=== PATIENT | female | born 1955 | race Caucasian/White ===

== ENCOUNTER 2016-11-22 12:59 | Inpatient (IN) | payer OTHER ==
--- NOTE | 2016-11-22 13:32 | PDOC ---
History of Present Illness - General History Source: Patient Exam Limitations: No Limitations - History of Present Illness Initial Comments: 11/22/16 14:34 The patient is a 61 year old female with a significant past medical history of Breast CA (s/p right sided lymphadenectomy and mastectomy), received chemotherapy treatment ? (2 weeks ago),and multiple skin abscesses of left upper extremity who presents to the ED with complaints of left upper extremity abscess for 6 days. The patient reports pain and swelling to the left upper extremity. She states her symptoms progressively worsened in the last 2 days. Patient denies discharge or streaking. Denies weakness or paresthesia. Patient denies fever or chills. Patient denies nausea, vomiting, or diarrhea. <Ashok Rebollar - Last Filed: 11/22/16 14:35> - General History Source: Patient Exam Limitations: No Limitations - History of Present Illness Initial Comments: 11/22/16 13:32 <Jareth Fuchs - Last Filed: 11/22/16 16:53> - General Chief Complaint: Abscess Boil Stated Complaint: ABSCESS IN HER L SIDE OF CHEST Time Seen by Provider: 11/22/16 13:04 Past History <Ashok Rebollar - Last Filed: 11/22/16 14:35> - Past Medical History Anemia: Yes Asthma: No Cancer: Yes (BREAST CANCER) Cardiac Disorders: Yes (ANGIOGRAM X 2, LAST 2010-STRESS AND ECHO 2012-ALL WNL) CVA: No COPD: Yes CHF: No Dementia: No Diabetes: No GI Disorders: Yes (HIATAL HERNIA,HEARTBURN) Disorders: No HTN: Yes Hypercholesterolemia: Yes Liver Disease: No Seizures: No Thyroid Disease: No - Surgical History Abdominal Surgery: Yes Appendectomy: No Cardiac Surgery: No Cholecystectomy: Yes Lung Surgery: No Neurologic Surgery: No Orthopedic Surgery: Yes (BILATERAL THR 10/2011, FELL AT REHAB, FX TROCHANTER WITH REPAIR 12/2011,) - Psycho/Social/Smoking Cessation Hx Anxiety: No Suicidal Ideation: No Smoking Status: No Smoking History: Former smoker Years of Tobacco Use: 20 Have you smoked in the past 12 months: Yes Number of Cigarettes Smoked Daily: 10 If you are a former smoker, when did you quit?: 1 YR AGO Hx Alcohol Use: Yes (COUPLE TIMES A WEEK) Drug/Substance Use Hx: No Substance Use Type: None Hx Substance Use Treatment: No <Jareth Fuchs - Last Filed: 11/22/16 16:53> - Past Medical History Allergies/Adverse Reactions: Allergies Allergy/AdvReac Type Severity Reaction Status Date / Time No Known Allergies Allergy Verified 11/22/16 13:22 Home Medications: Ambulatory Orders Citalopram Hydrobromide [Celexa -] 20 mg PO DAILY 02/21/16 Hydrochlorothiazide [Hctz -] 25 mg PO DAILY 02/21/16 Losartan Potassium [Cozaar -] 25 mg PO DAILY 02/21/16 Omeprazole 20 mg PO DAILY 02/21/16 Oxycodone HCl [Roxicodone] 5 mg PO QID PRN 11/22/16 Review of Systems - Review of Systems Able to Perform ROS?: Yes Comments:: 11/22/16 14:34 CONSTITUTIONAL: No reported: Fever, Chills, Diaphoresis, Generalized Weakness, Malaise, Loss of Appetite HEENT: No reported: Rhinorrhea, Nasal Congestion, Throat Pain, Throat Swelling, Difficulty Swallowing, Mouth Swelling, Ear Pain, Eye Pain, Visual Changes CARDIOVASCULAR: No reported: Chest Pain, Syncope, Palpitations, Irregular Heart Rate, Lightheadedness, Peripheral Edema RESPIRATORY: No reported: Cough, Shortness of Breath, SOB with Exertion, Orthopnea, Wheezing , Stridor, Hemoptysis GASTROINTESTINAL: No reported: Abdominal pain, Abdominal Distension, Nausea, Vomiting, Diarrhea, Constipation, Melena, Hematochezia GENITOURINARY: No reported: Dysuria, Frequency, Urgency, Hesitancy, Flank Pain, Genital Pain MUSCULOSKELETAL: No reported: Myalgia, Arthralgia, Joint Swelling, Back pain, Neck Pain SKIN: + abscess No reported: Rash, Itching, Pallor HEMEATOLOGIC/IMMUNOLOGIC: No reported: Easy Bleeding, Easy Bruising, Lymphadenopathy, Frequent infections ENDOCRINE: No reported: Unexplained Weight Gain, Unexplained Weight Loss, Heat Intolerance , Cold Intolerance NEUROLOGIC: No reported: Headache, Focal Weakness, Paresthesias, Vertigo, Lightheadedness, Unsteady Gait, Seizure, Mental Status Changes, Incontinence PSYCHIATRIC: No reported: Anxiety, Depression All Other Systems: Reviewed and Negative <Ashok Rebollar - Last Filed: 11/22/16 14:35> - Review of Systems Comments:: 11/22/16 13:32 CONSTITUTIONAL: Absent: fever, chills, fatigue EYES: Absent: visual changes ENT: Absent: ear pain, sore throat CARDIOVASCULAR: Absent: chest pain, palpitations, loss of consciousness RESPIRATORY: Absent: cough, SOB GI: Absent: abdominal pain, nausea, vomiting, constipation, diarrhea GENITOURINARY: Absent: dysuria, frequency, hematuria MUSKULOSKELETAL: Absent: back pain, arthralgia, myalgia SKIN: Present: See history of present illness NEURO: Absent: headache, dizziness <Jareth Fuchs - Last Filed: 11/22/16 16:53> *Physical Exam - Vital Signs Last Vital Signs Temp Pulse Resp BP Pulse Ox 98.4 F 79 16 118/58 96 11/22/16 13:01 11/22/16 13:01 11/22/16 13:01 11/22/16 13:01 11/22/16 13:01 - Physical Exam Comments: 11/22/16 14:34 GENERAL: Well developed, well nourished. Awake and alert. No acute distress. HEENT: Normocephalic, atraumatic. PERRLA, EOMI. No conjunctival pallor. Sclera are non- icteric. Moist mucous membranes. Oropharynx is clear. NECK: Supple. Full ROM. No JVD. Carotid pulses 2+ and symmetric, without bruits. No thyromegaly. No lymphadenopathy. CARDIOVASCULAR: Regular rate and rhythm. No murmurs, rubs, or gallops. Distal pulses are 2+ and symmetric. PULMONARY: No evidence of respiratory distress. Lungs clear to auscultation bilaterally. No wheezing, rales or rhonchi. ABDOMINAL: Soft. Non-tender. Non-distended. No rebound or guarding. No organomegaly. Normoactive bowel sounds. MUSCULOSKELETAL Normal range of motion at all joints. No bony deformities or tenderness. No CVA tenderness. EXTREMITIES: No cyanosis. No clubbing. No edema. No calf tenderness. SKIN: + area of erythema with underly induration at left shoulder, measuring 3 cm, no discharge. no fluctuance, mildly warm and tender to touch. No rashes. No jaundice. NEUROLOGICAL: Alert, awake, appropriate. Cranial nerves 2-12 intact. No deficits to light touch and temperature in face, upper extremities and lower extremities. No motor deficits in the in face, upper extremities and lower extremities. Normoreflexic in the upper and lower extremities. Normal speech. Toes are down- going bilaterally. Gait is normal without ataxia. PSYCHIATRIC: Cooperative. Good eye contact. Appropriate mood and affect. <Ashok Rebollar - Last Filed: 11/22/16 14:35> - Physical Exam Comments: 11/22/16 13:32 GENERAL: Well-appearing, well-nourished. No apparent distress. HEENT: Normocephalic, atraumatic. PERRL, EOM intact. CARDIOVASCULAR: Normal S1, S2. Regular rate and rhythm. PULMONARY: Clear to auscultation bilaterally. ABDOMEN: Soft, non-distended, non-tender. EXTREMITIES: Normal ROM in all four extremities. No gross deformities. SKIN: Warm, dry. No rash NEUROLOGICAL: No focal neurological deficits. <Jareth Fuchs - Last Filed: 11/22/16 16:53> ED Treatment Course - LABORATORY CBC & Chemistry Diagram: 11/22/16 15:20 11/22/16 15:20 <Jareth Fuchs - Last Filed: 11/22/16 16:53> Medical Decision Making - Medical Decision Making 11/22/16 14:32 The patient is well-appearing and in no acute distress Bedside ultrasound does not show any evidence of fluid collection in the area of swelling It has the clinical appearance of cellulitis, with underlying induration, and does not have the clinical appearance of an abscess At this point in time, I feel that an incision and drainage is not indicated Will obtain labs 11/22/16 16:25 CBC and Chemistries noted Differential pending 11/22/16 16:50 CBC noted Absolute neutrophil count 580 It is difficult to discern whether or not this is her ibeth Will admit for neutropenia and cellulitis She refuses admission CXR Clinical impression: Left upper extremity cellulitis Possible early abscess formation Neutropenia Initial bedside ultrasound without evidence of abscess I would recommend ultrasound in the a.m., to determine if am abscess has formed Case discussed in detail with admitting provider including history, physical exam and ancillary studies. Admitting physician has assumed care for the patient, will follow all pending diagnostics and will complete the evaluation and treatment. A portion of this note was documented by scribe services under my direction. I have reviewed the details of the note, within reason, and agree with the documentation with the following case summary and management plan written by me. 11/22/16 16:52 <Jareth Fuchs - Last Filed: 11/22/16 16:53> *DC/Admit/Observation/Transfer - Attestations Scribe Attestion: 11/22/16 14:35 Documentation prepared by Ashok Rebollar, acting as medical staff manager for Jareth Fuchs MD <Ashok Rebollar - Last Filed: 11/22/16 14:35> - Discharge Dispostion Admit: Yes <Jareth Fuchs - Last Filed: 11/22/16 16:53> Diagnosis at time of Disposition: Cellulitis, Neutropenia, Abscess
[2016-11-22 13:33] VITALS: BMI 39.0
--- NOTE | 2016-11-22 14:14 | PDOC ---
History of Present Illness - General Chief Complaint: Abscess Boil Stated Complaint: ABSCESS IN HER L SIDE OF CHEST Time Seen by Provider: 11/22/16 13:04 Past History - Past Medical History Allergies/Adverse Reactions: Allergies Allergy/AdvReac Type Severity Reaction Status Date / Time No Known Allergies Allergy Verified 11/22/16 13:22 Home Medications: Ambulatory Orders Citalopram Hydrobromide [Celexa -] 20 mg PO DAILY 02/21/16 Hydrochlorothiazide [Hctz -] 25 mg PO DAILY 02/21/16 Losartan Potassium [Cozaar -] 25 mg PO DAILY 02/21/16 Omeprazole 20 mg PO DAILY 02/21/16 Oxycodone HCl [Roxicodone] 5 mg PO QID PRN 11/22/16 Anemia: Yes Asthma: No Cancer: Yes (BREAST CANCER) Cardiac Disorders: Yes (ANGIOGRAM X 2, LAST 2010-STRESS AND ECHO 2011-ALL WNL) CVA: No COPD: Yes CHF: No Dementia: No Diabetes: No GI Disorders: Yes (HIATAL HERNIA,HEARTBURN) Disorders: No HTN: Yes Hypercholesterolemia: Yes Liver Disease: No Seizures: No Thyroid Disease: No Other medical history: CHEMO RELATED NEUROPATHY - Surgical History Abdominal Surgery: Yes Appendectomy: No Cardiac Surgery: No Cholecystectomy: Yes Lung Surgery: No Neurologic Surgery: No Orthopedic Surgery: Yes (BILATERAL THR 10/2011, FELL AT REHAB, FX TROCHANTER WITH REPAIR 12/2011,) - Psycho/Social/Smoking Cessation Hx Anxiety: No Suicidal Ideation: No Smoking Status: No Smoking History: Former smoker Years of Tobacco Use: 20 Have you smoked in the past 12 months: Yes Number of Cigarettes Smoked Daily: 10 If you are a former smoker, when did you quit?: 1 YR AGO Information on smoking cessation initiated: No Hx Alcohol Use: Yes (COUPLE TIMES A WEEK) Drug/Substance Use Hx: No Substance Use Type: None Hx Substance Use Treatment: No *Physical Exam - Vital Signs Last Vital Signs Temp Pulse Resp BP Pulse Ox 98.4 F 79 16 118/58 96 11/22/16 13:01 11/22/16 13:01 11/22/16 13:01 11/22/16 13:01 11/22/16 13:01
[2016-11-22 15:35] LABS: MEAN PLT VOLUME 6.8 fl (7.5-11.1)
[2016-11-22 15:38] LABS: MCHC 31.2 g/dl (32.0-36.0); MEAN CELL VOLUME 83.4 fl (80-96); PLATELET COUNT 331 K/MM3 (134-434); RDW 20.4 % (11.6-15.6)
[2016-11-22 15:54] LABS: WHITE BLOOD COUNT 1.9 K/mm3 (4.0-10.0)
[2016-11-22 16:20] LABS: ALBUMIN 3.3 g/dl (3.5-5.0); ALK PHOS 80 U/L (32-92); ANION GAP 7 (8-16); BILIRUBIN,TOTAL 0.5 mg/dl (0.2-1.0); CALCIUM 8.8 mg/dl (8.4-10.2); CO2 28 mmol/L (22-28); CREATININE 0.7 mg/dl (0.6-1.3); GLUCOSE,RANDOM 111 mg/dl (74-106); SGOT/AST 15 U/L (10-42); SGPT/ALT 11 U/L (10-40); TOT PROT 6.2 g/dl (6.4-8.3)
[2016-11-22 16:37] LABS: METAMYELOCYTE 4 % (0-2)
[2016-11-22 16:39] LABS: ANISOCYTOSIS 2+; HYPOCHROMIA 1+; POLYCHROMASIA OCC
[2016-11-22 16:40] LABS: OVALOCYTES 1+; TEAR DROP CELLS OCC
[2016-11-22] MEDS ORDERED: VANCOMYCIN 1,000 MG VIAL (RESTRICTED TO ID ONLY) ONE (16:47)
[2016-11-22] MEDS ORDERED: PIPERACILLIN/TAZOBACTAM 3.375 GM VIAL IVPB ONE (16:51)
[2016-11-22] MEDS ORDERED: PIPERACILLIN/TAZOB 4.5 GM 3.375 GM in DEXTROSE 5%-WATER 100 ML IVPB ONE (16:53)
[2016-11-22] MEDS ORDERED: VANCOMYCIN 1,000 MG in DEXTROSE 5%-WATER - 250 ML IVPB ONE (16:53)
--- NOTE | 2016-11-22 18:26 | HP ---
CHIEF COMPLAINT: Left upper extremity abscess x 6 days PCP: Lisandro Carranza Oncologist: [facility] Dr. Helm Surgeon: [facility] HISTORY OF PRESENT ILLNESS: 61 year old female with a significant past medical history of HTN, eosinophilic fasciitis, and recurrent skin abscesses for many years. Patient also has h/o breast cancer diagnosed January 2016 s/p right-sided mastectomy on February 25, 2016. 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 Patient started chemotherapy in March 2016 and is presently in her 8th cycle. She has been treated twice with prolonged courses of Vanco for staph, most recently in August 2016. Six days ago patient noticed a bump on her left shoulder, followed by swelling, redness, and pain which brought her to the ED. Patient denies fever, sweats, chills. ER course was notable for: (1) T 98.4 (2) WBC 1.9k, ANC 580 (3) US bedside: no fluid collection seen Recent Travel: [place] August 2016 PAST MEDICAL HISTORY: Hypertension Eosinophilic fasciitis Recurrent skin abscesses Breast cancer complicated by recurrent staph infections Hiatal hernia PAST SURGICAL HISTORY: Right mastectomy and lymphadenectomy Cholecystectomy Bilateral total hip replacements (10/2011) Trochanter fracture repair (12/2011) Social History: Smokin years quit one year ago Alcohol: no Drugs: no Family History: none Allergies No Known Allergies Allergy (Verified 11/22/16 13:22) HOME MEDICATIONS: Medication Instructions Recorded Citalopram Hydrobromide [Celexa -] 20 mg PO DAILY 02/21/16 Hydrochlorothiazide [Hctz -] 25 mg PO DAILY 02/21/16 Losartan Potassium [Cozaar -] 25 mg PO DAILY 02/21/16 Omeprazole 20 mg PO DAILY 02/21/16 Oxycodone HCl [Roxicodone] 5 mg PO QID PRN 11/22/16 REVIEW OF SYSTEMS CONSTITUTIONAL: Absent: fever, chills, diaphoresis, generalized weakness, malaise, loss of appetite, weight change HEENT: Absent: rhinorrhea, nasal congestion, throat pain, throat swelling, difficulty swallowing, mouth swelling, ear pain, eye pain, visual changes CARDIOVASCULAR: Absent: chest pain, syncope, palpitations, irregular heart rate, lightheadedness , peripheral edema RESPIRATORY: Absent: cough, shortness of breath, dyspnea with exertion, orthopnea, wheezing, stridor, hemoptysis GASTROINTESTINAL: Absent: abdominal pain, abdominal distension, nausea, vomiting, diarrhea, constipation, melena, hematochezia GENITOURINARY: Absent: dysuria, frequency, urgency, hesitancy, hematuria, flank pain, genital pain MUSCULOSKELETAL: Absent: myalgia, arthralgia, joint swelling, back pain, neck pain SKIN: Present: left shoulder area of swelling, redness, and pain that developed over past 6 days Absent: rash, itching, pallor HEMATOLOGIC/IMMUNOLOGIC: Present: breast cancer Absent: easy bleeding, easy bruising, lymphadenopathy, frequent infections ENDOCRINE: Absent: unexplained weight gain, unexplained weight loss, heat intolerance, cold intolerance NEUROLOGIC: Absent: headache, focal weakness or paresthesias, dizziness, unsteady gait, seizure, mental status changes, bladder or bowel incontinence PSYCHIATRIC: Present: anxiety Absent: depression, suicidal or homicidal ideation, hallucinations. PHYSICAL EXAMINATION GENERAL: Awake, alert, and fully oriented, in no acute distress. HEAD: Normal with no signs of trauma. EYES: Pupils equal, round and reactive to light, extraocular movements intact, sclera anicteric, conjunctiva clear. No ptosis. EARS, NOSE, THROAT: Ears normal, nares patent, oropharynx clear without exudates. Moist mucous membranes. NECK: Normal range of motion, supple without lymphadenopathy, JVD, or masses. LUNGS: Breath sounds equal, clear to auscultation bilaterally. No wheezes, and no crackles. No accessory muscle use. HEART: Regular rate and rhythm, normal S1 and S2 without murmur, rub or gallop. ABDOMEN: Soft, nontender, not distended, normoactive bowel sounds, no guarding, no rebound, no masses. No hepatomegaly or splenomegaly. CHEST: Right mastectomy surgical scar well-healed; upper right chest mediport with no erythema, swelling, or tenderness; left shoulder area of induration, erythema, tenderness ~4cm circumference MUSCULOSKELETAL: Normal range of motion at all joints. No bony deformities or tenderness. No CVA tenderness. UPPER EXTREMITIES: 2+ pulses, warm, well-perfused. No cyanosis. No clubbing. Cap refill <2 seconds. No peripheral edema. LOWER EXTREMITIES: 2+ pulses, warm, well-perfused. No calf tenderness. No peripheral edema. NEUROLOGICAL: Cranial nerves II-XII intact. Normal speech. Gait not observed. ASSESSMENT/PLAN: 61 year-old female with a PMH of HTN, recurrent skin abscesses, breast cancer s/ p mastectomy complicated by recurrent staph infections. Admitted for left upper extremity cellulitis and possible early abscess formation, and neutropenia. Breast cancer s/p mastectomy Leukopenia --presently in 8th round of chemotherapy --WBC 1.9k, ANC 580 --will contact [facility] oncologist Sepsis secondary to left upper extremity cellulitis and possible abscess formation --spiked fever to 102.3, WBC 1.9k; hemodynamically stable --NS x 2L --lactic acid now and repeat in 6 hours --blood cultures may have been drawn off mediport; collect and send new cultures drawn peripherally --urine culture collected and sent --start Zosyn and Vanco --neutropenic precautions Hypertension --hold home losartan due to sepsis F/E/N Fluids: bolus 2L, then NS @100mL/hr Electrolytes: replete as indicated Nutrition: neutropenic diet DVT prophylaxis: lovenox, oob Dispo: continues to require inpatient care. Full Code. Visit type - Emergency Visit Emergency Visit: Yes ED Registration Date: 11/22/16 Care time: The patient presented to the Emergency Department on the above date and was hospitalized for further evaluation of their emergent condition. - New Patient This patient is new to me today: Yes Date on this admission: 11/23/16 - Critical Care Critical Care patient: No
[2016-11-22] MEDS ORDERED: OXYCODONE/APAP 5/325MG COMBO TABLET PO ONE (18:29)
--- NOTE | 2016-11-22 18:48 | CONSULT ---
Consult Consult Specialty:: infectious diseases Reason for Consultation:: swelling in the left shoulder joint. neutropenia - History of Present Illness Chief Complaint: pain and swelling of the left shoulder History of Present Illness: This very pleasant lady who has undergone a lot of procedures. 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 Patient during that time got staph infection and was treated with vanco Her last admission was couple of days back as her operative scar had got infected with multiple pockets of fluid,which was again diagnosed with staph.which according to the patient was not mrsa infection. patient was again it seems treated with vanco which she got for a total duration of 21 days--9 in hospital,rest at home patient was doing well her scar was revised patient couple of days back noticed a bump on the left shoulder,initially she thought it was a bump and she did not think anything of it. The swelling increased and it became more red about 2 days back and patient started having pain and came to the hospital patient has recently received chemo and on work up found to be neutropenic The operated breast has no issues - History Source History Provided By: Patient Limitations to Obtaining History: No Limitations - Alcohol/Substance Use Hx Alcohol Use: Yes (COUPLE TIMES A WEEK) - Smoking History Smoking history: Former smoker Have you smoked in the past 12 months: Yes Aproximately how many cigarettes per day: 10 If you are a former smoker, when did you quit?: 1 YR AGO Home Medications - Allergies Allergies/Adverse Reactions: Allergies Allergy/AdvReac Type Severity Reaction Status Date / Time No Known Allergies Allergy Verified 11/22/16 13:22 - Home Medications Home Medications: Ambulatory Orders Citalopram Hydrobromide [Celexa -] 20 mg PO DAILY 02/21/16 Hydrochlorothiazide [Hctz -] 25 mg PO DAILY 02/21/16 Losartan Potassium [Cozaar -] 25 mg PO DAILY 02/21/16 Omeprazole 20 mg PO DAILY 02/21/16 Oxycodone HCl [Roxicodone] 5 mg PO QID PRN 11/22/16 Review of Systems - Review of Systems Constitutional: reports: Other Eyes: reports: No Symptoms HENT: reports: No Symptoms Neck: reports: No Symptoms Cardiovascular: reports: No Symptoms Respiratory: reports: No Symptoms Gastrointestinal: reports: No Symptoms Genitourinary: reports: No Symptoms Breasts: reports: No Symptoms Reported Musculoskeletal: reports: Other Integumentary: reports: Change in Color, Erythema Neurological: reports: No Symptoms Endocrine: reports: No Symptoms Hematology/Lymphatic: reports: No Symptoms Psychiatric: reports: No Symptoms Physical Exam Vital Signs: Vital Signs Temperature 98.4 F 11/22/16 13:01 Pulse Rate 79 11/22/16 13:01 Respiratory Rate 16 11/22/16 13:01 Blood Pressure 118/58 11/22/16 13:01 O2 Sat by Pulse Oximetry (%) 96 11/22/16 13:01 Constitutional: Yes: Well Nourished, Mild Distress, Obese Eyes: Yes: Conjunctiva Clear HENT: Yes: Atraumatic, Normocephalic Neck: Yes: Supple Cardiovascular: Yes: Regular Rate and Rhythm Respiratory: Yes: Regular, CTA Bilaterally Gastrointestinal: Yes: Normal Bowel Sounds, Soft Breast(s): Yes: Left (mastectomy scar site looks good), Right (breast looks good no lumps palpated). No: Discharge from Nipple, Mass Extremities: Yes: Erythema (on the left shoulder about 1 -2 cm below the joint) Integumentary: Yes: Erythema, Other Wound/Incision: Yes: Other Neurological: Yes: Alert, Oriented Psychiatric: Yes: Alert Assessment/Plan after going thro patients history i have a very strong suspicion that this is an infective process and maybe it is a staph infection also we should rule out any other process going on since patient has a rough history upto now patient denies any fever and she very immunocompromised and should be aggressively covered 61 year-old female with a PMH of HTN, recurrent skin abscesses, breast cancer s/ p mastectomy complicated by recurrent staph infections. Admitted for left upper extremity cellulitis and possible early abscess formation, and neutropenia. Breast cancer s/p mastectomy Leukopenia Sepsis secondary to left upper extremity cellulitis and possible abscess formation Hypertension plan we should get a ct scan of chest and left shoulder included i have started her on vanco and zosyn depending on the finding we will plan the next move if need be we might have to aspirate the swelling ryanne
[2016-11-22] MEDS: PIPERACILLIN/TAZOB 3.375 GM 50 ML IVPB SCH (20:14)
[2016-11-22 21:07] LABS: PH,URINE 5.5 (4.5-8); URINE APPEARANCE Clear; URINE BILIRUBIN 1+ (NEGATIVE); URINE BLOOD Negative (NEGATIVE); URINE GLUCOSE (UA) Negative (NEGATIVE); URINE KETONE Trace (NEGATIVE); URINE LEUK ESTERASE Negative (NEGATIVE); URINE NITRITE Negative (NEGATIVE); URINE UROBILINOGEN 0.2 E.U/dl (0.2-1.0)
[2016-11-22 21:09] LABS: URINE COLOR YELLOW; URINE PROTEIN 1+ (NEGATIVE)
[2016-11-22 22:35] LABS: URINE MUCUS 2+; URINE RBC 0-3 /hpf (0-3)
[2016-11-22] MEDS ORDERED: SODIUM CHLORIDE 1,000 ML IV STA ×2 (23:13)
[2016-11-22] MEDS: SODIUM CHLORIDE 1,000 ML IV SCH (23:15)
[2016-11-22] MEDS: ACETAMINOPHEN 325 MG TABLET (FP) PO PRN (23:30)
[2016-11-23] MEDS: PIPERACILLIN/TAZOB 3.375 GM 50 ML IVPB SCH ×3 (01:26→17:29)
[2016-11-23] MEDS: oxyCODONE HCL 5 MG TABLET PO PRN ×2 (06:36→16:00)
[2016-11-23 08:00] LABS: MCH 26.1 pg (25.7-33.7); MCHC 31.4 g/dl (32.0-36.0); MEAN CELL VOLUME 83.2 fl (80-96); MEAN PLT VOLUME 7.3 fl (7.5-11.1); PLATELET COUNT 291 K/MM3 (134-434); RDW 20.4 % (11.6-15.6); WHITE BLOOD COUNT 2.3 K/mm3 (4.0-10.0)
[2016-11-23 08:06] LABS: ALK PHOS 74 U/L (32-92); ANION GAP 10 (8-16); BILIRUBIN,TOTAL 0.6 mg/dl (0.2-1.0); CALCIUM 7.9 mg/dl (8.4-10.2); CO2 25 mmol/L (22-28); CREATININE 0.8 mg/dl (0.6-1.3); GLUCOSE,RANDOM 94 mg/dl (74-106); MAGNESIUM 1.9 mg/dL (1.8-2.4); SGOT/AST 13 U/L (10-42); TOT PROT 5.4 g/dl (6.4-8.3)
[2016-11-23 08:15] LABS: INR 1.21 (0.82-1.09); PROTHROMBIN TIME (PATIENT) 13.2 SEC (10.2-13.0)
[2016-11-23 08:38] LABS: SGPT/ALT 10 U/L (10-40)
[2016-11-23] MEDS: PANTOPRAZOLE 40 MG TABLET (FP) PO SCH (09:35)
[2016-11-23] MEDS: CITALOPRAM HYDROBROMIDE 20 MG TABLET (FP) PO SCH (09:35)
[2016-11-23] MEDS: HYDROCHLOROTHIAZIDE 25 MG TABLET (FP) PO SCH (09:35)
[2016-11-23] MEDS: VANCOMYCIN 1 GRAM (PRE-DOCKED) 250 ML IVPB SCH (09:36)
[2016-11-23] MEDS: ENOXAPARIN NA (PORCINE) 40 MG/0.4 ML DISP.SYRIN SQ SCH (09:38)
[2016-11-23] MEDS ORDERED: LOSARTAN POTASSIUM 25 MG TABLET PO SCH (10:00)
[2016-11-23] MEDS: MUPIROCIN 2% TOPICAL OINTMENT 22 GM TUBE TP SCH (10:00)
--- NOTE | 2016-11-23 11:12 | PN ---
Physical Exam: SUBJECTIVE: Patient seen and examined. Has had a few loose stools since starting antibiotics. Fever symptoms have resolved. OBJECTIVE: Vital Signs Period Temp Pulse Resp BP Sys/Mancia Pulse Ox Last 24 Hr 98.4 F-102.3 F 65-81 17-18 111-128/45-49 94-95 GENERAL: Awake, alert, and fully oriented, in no acute distress. HEAD: Normal with no signs of trauma. EYES: Pupils equal, round and reactive to light, extraocular movements intact, sclera anicteric, conjunctiva clear. No ptosis. LUNGS: Breath sounds equal, clear to auscultation bilaterally. No wheezes, and no crackles. No accessory muscle use. HEART: Regular rate and rhythm, normal S1 and S2 without murmur, rub or gallop. ABDOMEN: Soft, nontender, not distended, normoactive bowel sounds, no guarding, no rebound, no masses. CHEST: Right mastectomy surgical scar well-healed; upper right chest mediport with no erythema, swelling, or tenderness; left shoulder area of induration, erythema, ~4cm circumference, no extension beyond the inked borders marked yesterday, less tender, no fluctance MUSCULOSKELETAL: Normal range of motion at all joints. No bony deformities or tenderness. No CVA tenderness. UPPER EXTREMITIES: 2+ pulses, warm, well-perfused. No cyanosis. No clubbing. Cap refill <2 seconds. No peripheral edema. LOWER EXTREMITIES: 2+ pulses, warm, well-perfused. No calf tenderness. No peripheral edema. NEUROLOGICAL: Cranial nerves II-XII intact. Normal speech. Gait not observed. Laboratory Results - last 24 hr 11/22/16 11/23/16 11/23/16 20:30 01:00 05:45 WBC 2.3 L RBC 3.37 L Hgb 8.8 L Hct 28.1 L MCV 83.2 MCHC 31.4 L RDW 20.4 H Plt Count 291 MPV 7.3 L Neutrophils % Y Lymphocytes % Y INR Sodium Potassium Chloride Carbon Dioxide Anion Gap BUN Creatinine Creat Clearance w eGFR Random Glucose Lactic Acid 0.944 Calcium Magnesium Total Bilirubin AST ALT Alkaline Phosphatase Total Protein Albumin Urine Color Yellow Urine Appearance Clear Urine pH 5.5 Ur Specific [place] 1.015 Urine Protein 1+ H Urine Glucose (UA) Negative Urine Ketones Trace Urine Blood Negative Urine Nitrite Negative Urine Bilirubin 1+ H Urine Urobilinogen 0.2 e.u/dl Ur Leukocyte Esterase Negative Urine RBC 0-3 Urine WBC 3-5 Ur Epithelial Cells 3-5 Urine Mucus 2+ 11/23/16 11/23/16 11/23/16 05:45 05:45 05:45 WBC RBC Hgb Hct MCV MCHC RDW Plt Count MPV Neutrophils % Lymphocytes % INR 1.21 Sodium 142 Potassium 3.7 Chloride 107 Carbon Dioxide 25 Anion Gap 10 BUN 12 Creatinine 0.8 Creat Clearance w eGFR > 60 Random Glucose 94 Lactic Acid 0.830 Calcium 7.9 L Magnesium 1.9 Total Bilirubin 0.6 AST 13 ALT 10 Alkaline Phosphatase 74 Total Protein 5.4 L Albumin 3.0 L Urine Color Urine Appearance Urine pH Ur Specific [place] Urine Protein Urine Glucose (UA) Urine Ketones Urine Blood Urine Nitrite Urine Bilirubin Urine Urobilinogen Ur Leukocyte Esterase Urine RBC Urine WBC Ur Epithelial Cells Urine Mucus Current Medications Generic Name Dose Route Start Last Admin Trade Name Freq PRN Reason Stop Dose Admin Acetaminophen 650 mg 11/22/16 23:47 11/22/16 23:30 Tylenol - PO 650 mg Q6H PRN Administration FEVER OR PAIN Citalopram Hydrobromide 20 mg 11/23/16 10:00 11/23/16 09:35 Celexa - PO 20 mg DAILY [facility] Administration Enoxaparin Sodium 40 mg 11/23/16 10:00 11/23/16 09:38 Lovenox - SQ 40 mg DAILY [facility] Administration Hydrochlorothiazide 25 mg 11/23/16 10:00 11/23/16 09:35 Hctz - PO 25 mg DAILY [facility] Administration Vancomycin HCl 250 mls @ 250 mls/hr 11/23/16 10:00 11/23/16 09:36 Vancomycin (Pre-Docked) IVPB 250 mls/hr DAILY [facility] Administration Piperacillin Sod/Tazobactam Sod 50 mls @ 100 mls/hr 11/22/16 19:00 11/23/16 09: 36 Zosyn 3.375gm Ivpb (Pre-Docked) IVPB 100 mls/hr Q8H-IV [facility] Administration Sodium Chloride 1,000 mls @ 100 mls/hr 11/22/16 23:15 11/22/16 23:15 Normal Saline - IV 100 mls/hr ASDIR [facility] Administration Mupirocin 1 applic 11/23/16 10:00 Bactroban 2% Ointment - TP DAILY [facility] Oxycodone HCl 5 mg 11/22/16 18:37 11/23/16 06:36 Roxicodone - PO 5 mg QID PRN Administration PAIN Pantoprazole Sodium 40 mg 11/23/16 10:00 11/23/16 09:35 Protonix - PO 40 mg DAILY [facility] Administration Imaging CT chest and left upper extremity: no evidence of abscess or fluid collection; subcutaneous thickening LUE; nonspecific left axillary lymph node prominence ASSESSMENT/PLAN: 61 year-old female with a PMH of HTN, recurrent skin abscesses, breast cancer s/ p mastectomy complicated by recurrent staph infections. Admitted for left upper extremity cellulitis and neutropenia. Breast cancer s/p mastectomy Neutropenia --presently in 8th round of chemotherapy --WBC 2.3k (<--1.9k); yeserday ANC 580 --will contact [facility] [place]. Helm Sepsis secondary to left upper extremity cellulitis --CT imaging: no sign of abscess or fluid collection; subq thickening consistent with cellulitis --Tm 102.3, Tc 98.6; hemodynamically stable --lactic acid wnl x 2 --cultures pending --continue Vanc and Zosyn --neutropenic precautions Hypertension --normotensive --hold home losartan due to sepsis F/E/N Fluids: NS @100mL/hr Electrolytes: replete as indicated Nutrition: neutropenic diet DVT prophylaxis: lovenox, oob Dispo: continues to require inpatient care. Full Code. Visit type - Emergency Visit Emergency Visit: Yes ED Registration Date: 11/22/16 Care time: The patient presented to the Emergency Department on the above date and was hospitalized for further evaluation of their emergent condition. - New Patient This patient is new to me today: No - Critical Care Critical Care patient: No
--- NOTE | 2016-11-23 15:43 | PN ---
Progress Note, Physician History of Present Illness: feels better did spike to 102 yesterday since then afebrile - Current Medication List Current Medications: Active Medications Acetaminophen (Tylenol -) 650 mg PO Q6H PRN PRN Reason: FEVER OR PAIN Last Admin: 11/22/16 23:30 Dose: 650 mg Citalopram Hydrobromide (Celexa -) 20 mg PO DAILY [facility] Last Admin: 11/23/16 09:35 Dose: 20 mg Enoxaparin Sodium (Lovenox -) 40 mg SQ DAILY [facility] Last Admin: 11/23/16 09:38 Dose: 40 mg Hydrochlorothiazide (Hctz -) 25 mg PO DAILY [facility] Last Admin: 11/23/16 09:35 Dose: 25 mg Vancomycin HCl (Vancomycin (Pre-Docked)) 250 mls @ 250 mls/hr IVPB DAILY [facility] Last Admin: 11/23/16 09:36 Dose: 250 mls/hr Piperacillin Sod/Tazobactam Sod (Zosyn 3.375gm Ivpb (Pre-Docked)) 50 mls @ 100 mls/hr IVPB Q8H-IV [facility] Last Admin: 11/23/16 09:36 Dose: 100 mls/hr Sodium Chloride (Normal Saline -) 1,000 mls @ 100 mls/hr IV ASDIR [facility] Last Admin: 11/22/16 23:15 Dose: 100 mls/hr Mupirocin (Bactroban 2% Ointment -) 1 applic TP DAILY [facility] Last Admin: 11/23/16 10:00 Dose: 1 applic Oxycodone HCl (Roxicodone -) 5 mg PO QID PRN PRN Reason: PAIN Last Admin: 11/23/16 06:36 Dose: 5 mg Pantoprazole Sodium (Protonix -) 40 mg PO DAILY [facility] Last Admin: 11/23/16 09:35 Dose: 40 mg - Objective Vital Signs: Vital Signs Temperature 98.2 F 11/23/16 14:13 Pulse Rate 69 11/23/16 14:13 Respiratory Rate 18 11/23/16 14:13 Blood Pressure 102/55 11/23/16 14:13 O2 Sat by Pulse Oximetry (%) 98 11/23/16 14:13 Constitutional: Yes: No Distress, Calm Cardiovascular: Yes: Regular Rate and Rhythm Respiratory: Yes: Regular, CTA Bilaterally Gastrointestinal: Yes: Normal Bowel Sounds, Soft Musculoskeletal: Yes: Other Extremities: Yes: Erythema (on the left hand upper) Neurological: Yes: Alert, Oriented Psychiatric: Yes: Alert Labs: CBC, BMP 11/23/16 05:45 11/23/16 05:45 INR, PTT INR 1.21 (0.82-1.09) 11/23/16 05:45 Assessment/Plan 61 year-old female with a PMH of HTN, recurrent skin abscesses, breast cancer s/ p mastectomy complicated by recurrent staph infections. Admitted for left upper extremity cellulitis and possible early abscess formation, and neutropenia. Breast cancer s/p mastectomy Leukopenia Sepsis secondary to left upper extremity cellulitis and possible abscess formation Hypertension fever looked at the ct scan results patient has multiple lymph nodes seen on the ct scan plan continue abx continue monitoring the swelling redness ahs decreased pain better
[2016-11-23] MEDS: ACETAMINOPHEN 325 MG TABLET (FP) PO PRN (16:23)
[2016-11-24] MEDS: SODIUM CHLORIDE 1,000 ML IV SCH (01:13)
[2016-11-24] MEDS: PIPERACILLIN/TAZOB 3.375 GM 50 ML IVPB SCH ×3 (01:40→18:18)
[2016-11-24] MEDS ORDERED: PORTA CATH FLUSH 10 ML IVPUSH ONE (07:14)
--- NOTE | 2016-11-24 08:26 | PN ---
Physical Exam: SUBJECTIVE: Patient seen and examined, reports eeling well, denies any tactile fever, wants to go home OBJECTIVE: sreedhar 61 year old female with a significant past medical history of HTN, eosinophilic fasciitis, and recurrent skin abscesses for many years, h/o breast cancer diagnosed January 2016 s/p right-sided mastectomy on February 25, 2016. Initial surgery was followed by four more surgeries from February to August 2016 due to recurrent staph infection Patient was admitted from the emergency department for left shoulder cellulites Vital Signs Period Temp Pulse Resp BP Sys/Mancia Pulse Ox Last 24 Hr 98.2 F-98.9 F 68-72 16-18 102-145/55-57 94-98 GENERAL: The patient is awake, alert, and fully oriented, in no acute distress. HEAD: Normal with no signs of trauma. EYES: PERRL, extraocular movements intact, sclera anicteric, conjunctiva clear. No ptosis. ENT: Ears normal, nares patent, oropharynx clear without exudates, moist mucous membranes. NECK: Trachea midline, full range of motion, supple. LUNGS: Breath sounds equal, clear to auscultation bilaterally, no wheezes, no crackles, no accessory muscle use. HEART: Regular rate and rhythm, S1, S2 without murmur, rub or gallop LEFT SHOULDER: 3cm of induration, no erythema extending past marking no lymphangitis ABDOMEN: Soft, nontender, nondistended, normoactive bowel sounds, no guarding, no rebound, no hepatosplenomegaly, no masses. EXTREMITIES: 2+ pulses, warm, well-perfused, no edema. NEUROLOGICAL: Cranial nerves II through XII grossly intact. Normal speech, gait not observed. PSYCH: Normal mood, normal affect. SKIN: Warm, dry, normal turgor, no rashes or lesions noted Laboratory Results - last 24 hr 11/23/16 11/23/16 05:45 05:45 Sodium 142 Potassium 3.7 Chloride 107 Carbon Dioxide 25 Anion Gap 10 BUN 12 Creatinine 0.8 Creat Clearance w eGFR > 60 Random Glucose 94 Lactic Acid 0.830 Calcium 7.9 L Magnesium 1.9 Total Bilirubin 0.6 AST 13 ALT 10 Alkaline Phosphatase 74 Total Protein 5.4 L Albumin 3.0 L Active Medications Generic Name Dose Route Start Last Admin Trade Name Freq PRN Reason Stop Dose Admin Acetaminophen 650 mg 11/22/16 23:47 11/23/16 16:23 Tylenol - PO 650 mg Q6H PRN Administration FEVER OR PAIN Citalopram Hydrobromide 20 mg 11/23/16 10:00 11/23/16 09:35 Celexa - PO 20 mg DAILY [facility] Administration Enoxaparin Sodium 40 mg 11/23/16 10:00 11/23/16 09:38 Lovenox - SQ 40 mg DAILY [facility] Administration Hydrochlorothiazide 25 mg 11/23/16 10:00 11/23/16 09:35 Hctz - PO 25 mg DAILY [facility] Administration Vancomycin HCl 250 mls @ 250 mls/hr 11/23/16 10:00 11/23/16 09:36 Vancomycin (Pre-Docked) IVPB 250 mls/hr DAILY [facility] Administration Piperacillin Sod/Tazobactam Sod 50 mls @ 100 mls/hr 11/22/16 19:00 11/24/16 01: 40 Zosyn 3.375gm Ivpb (Pre-Docked) IVPB 100 mls/hr Q8H-IV [facility] Administration Sodium Chloride 1,000 mls @ 100 mls/hr 11/22/16 23:15 11/24/16 01:13 Normal Saline - IV 100 mls/hr ASDIR [facility] Administration Mupirocin 1 applic 11/23/16 10:00 11/23/16 10:00 Bactroban 2% Ointment - TP 1 applic DAILY [facility] Administration Oxycodone HCl 5 mg 11/22/16 18:37 11/23/16 16:00 Roxicodone - PO 5 mg QID PRN Administration PAIN Pantoprazole Sodium 40 mg 11/23/16 10:00 11/23/16 09:35 Protonix - PO 40 mg DAILY [facility] Administration Microbiology 11/22/16 16:00 Urine - Urine Clean Catch Urine Culture - Final NO GROWTH OBTAINED 11/23/16 01:37 Blood - Peripheral Venous Blood Culture - Preliminary NO GROWTH OBTAINED AFTER 24 HOURS, INCUBATION TO CONTINUE FOR 4 DAYS. 11/23/16 01:37 Blood - Peripheral Venous Blood Culture - Preliminary NO GROWTH OBTAINED AFTER 24 HOURS, INCUBATION TO CONTINUE FOR 4 DAYS. 11/22/16 15:15 Blood - Peripheral Venous Blood Culture - Preliminary NO GROWTH OBTAINED AFTER 24 HOURS, INCUBATION TO CONTINUE FOR 4 DAYS. 11/22/16 15:20 Blood - Peripheral Venous Blood Culture - Preliminary NO GROWTH OBTAINED AFTER 24 HOURS, INCUBATION TO CONTINUE FOR [address] chest and left upper extremity: no evidence of abscess or fluid collection; subcutaneous thickening LUE; nonspecific left axillary lymph node prominence ASSESSMENT/PLAN: 1) heme/onc Breast cancer s/p mastectomy Neutropenia - pt on 8th chemotherapy - wbc 2.3 pending am labs - voice mail [place] [facility] [place] 2) ID:Sepsis secondary to left upper extremity cellulitis - pt afebrile neutropenic precautions - continue vanco & zosyn - ID consulted and followed 3) card Hypertension - b/p well controlled - continue losartan and hctz F/E/N Fluids: NS @100mL/hr Electrolytes: replete as indicated Nutrition: neutropenic diet DVT prophylaxis: lovenox, oob Dispo: continues to require inpatient care. Full Code. lengthy conversation with patient in regards to transfer to [facility] for further management. Patient adamantly declines at this time. Visit type - Emergency Visit Emergency Visit: Yes ED Registration Date: 11/22/16 Care time: The patient presented to the Emergency Department on the above date and was hospitalized for further evaluation of their emergent condition. - New Patient This patient is new to me today: Yes Date on this admission: 11/24/16 - Critical Care Critical Care patient: No - Discharge Referral Referred to [facility] Med [facility].C[facility] No
[2016-11-24] MEDS: VANCOMYCIN 1 GRAM (PRE-DOCKED) 250 ML IVPB SCH (09:48)
[2016-11-24] MEDS: CITALOPRAM HYDROBROMIDE 20 MG TABLET (FP) PO SCH (09:49)
[2016-11-24] MEDS: ENOXAPARIN NA (PORCINE) 40 MG/0.4 ML DISP.SYRIN SQ SCH (09:49)
[2016-11-24] MEDS: HYDROCHLOROTHIAZIDE 25 MG TABLET (FP) PO SCH (09:49)
[2016-11-24] MEDS: PANTOPRAZOLE 40 MG TABLET (FP) PO SCH (09:49)
[2016-11-24] MEDS: MUPIROCIN 2% TOPICAL OINTMENT 22 GM TUBE TP SCH (10:00)
[2016-11-24] MEDS ORDERED: SODIUM CHLORIDE 1,000 ML IV SCH (14:05)
--- NOTE | 2016-11-24 16:02 | PN ---
Progress Note, Physician History of Present Illness: feels better swelling and erythema better - Current Medication List Current Medications: Active Medications Acetaminophen (Tylenol -) 650 mg PO Q6H PRN PRN Reason: FEVER OR PAIN Last Admin: 11/23/16 16:23 Dose: 650 mg Citalopram Hydrobromide (Celexa -) 20 mg PO DAILY [facility] Last Admin: 11/24/16 09:49 Dose: 20 mg Enoxaparin Sodium (Lovenox -) 40 mg SQ DAILY [facility] Last Admin: 11/24/16 09:49 Dose: 40 mg Hydrochlorothiazide (Hctz -) 25 mg PO DAILY [facility] Last Admin: 11/24/16 09:49 Dose: 25 mg Vancomycin HCl (Vancomycin (Pre-Docked)) 250 mls @ 250 mls/hr IVPB DAILY [facility] Last Admin: 11/24/16 09:48 Dose: 250 mls/hr Piperacillin Sod/Tazobactam Sod (Zosyn 3.375gm Ivpb (Pre-Docked)) 50 mls @ 100 mls/hr IVPB Q8H-IV [facility] Last Admin: 11/24/16 09:48 Dose: 100 mls/hr Sodium Chloride (Normal Saline -) 1,000 mls @ 43 mls/hr IV ASDIR [facility] Losartan Potassium (Cozaar -) 25 mg PO DAILY [facility] Mupirocin (Bactroban 2% Ointment -) 1 applic TP DAILY [facility] Last Admin: 11/24/16 10:00 Dose: 1 applic Oxycodone HCl (Roxicodone -) 5 mg PO QID PRN PRN Reason: PAIN Last Admin: 11/23/16 16:00 Dose: 5 mg Pantoprazole Sodium (Protonix -) 40 mg PO DAILY [facility] Last Admin: 11/24/16 09:49 Dose: 40 mg - Objective Vital Signs: Vital Signs Temperature 98.9 F 11/24/16 06:00 Pulse Rate 68 11/24/16 06:00 Respiratory Rate 18 11/24/16 06:00 Blood Pressure 145/57 11/24/16 06:00 O2 Sat by Pulse Oximetry (%) 94 L 11/24/16 06:07 Constitutional: Yes: No Distress, Calm HENT: Yes: Atraumatic Respiratory: Yes: Regular, CTA Bilaterally Gastrointestinal: Yes: Normal Bowel Sounds, Soft Musculoskeletal: Yes: Other Extremities: Yes: Other (the swelling has started toimprove) Neurological: Yes: Alert, Oriented Psychiatric: Yes: Alert Labs: CBC, BMP 11/23/16 05:45 11/23/16 05:45 INR, PTT INR 1.21 (0.82-1.09) 11/23/16 05:45 Assessment/Plan 61 year-old female with a PMH of HTN, recurrent skin abscesses, breast cancer s/ p mastectomy complicated by recurrent staph infections. Admitted for left upper extremity cellulitis and possible early abscess formation, and neutropenia. Breast cancer s/p mastectomy Leukopenia Sepsis secondary to left upper extremity cellulitis and possible abscess formation Hypertension fever looked at the ct scan results patient has multiple lymph nodes seen on the ct scan plan continue abx swelling decreased erythema better will see the wbc cx results noted
[2016-11-24 17:28] LABS: CALCIUM 8.7 mg/dl (8.4-10.2); CREATININE 0.8 mg/dl (0.6-1.3)
[2016-11-24 17:33] LABS: BASOPHIL 0.4 % (0-2.0); EOSINOPHIL 3.7 % (0-4.5); MCH 26.4 pg (25.7-33.7); MCHC 31.6 g/dl (32.0-36.0); MEAN CELL VOLUME 83.6 fl (80-96); MEAN PLT VOLUME 7.1 fl (7.5-11.1); NEUTROPHILS 65.3 % (42.8-82.8); PLATELET COUNT 397 K/MM3 (134-434); RDW 20.3 % (11.6-15.6); WHITE BLOOD COUNT 4.6 K/mm3 (4.0-10.0)
--- NOTE | 2016-11-24 18:26 | EKG ---
Test Reason : Blood Pressure : / mmHG Vent. Rate : 071 BPM Atrial Rate : 071 BPM P-R Int : 116 ms QRS Dur : 082 ms QT Int : 390 ms P-R-T Axes : 050 041 039 degrees QTc Int : 423 ms NORMAL SINUS RHYTHM NONSPECIFIC T WAVE ABNORMALITY NO PREVIOUS ECGS AVAILABLE Confirmed by MD TG, ROBB ([id number]) on 11/24/2016 6:25:46 PM Referred By: ALESSANDRA Confirmed By:ROBB MAS MD
[2016-11-24] MEDS ORDERED: POTASSIUM CHLORIDE TABS 20 MEQ TABLET.ER (FP) PO STA (19:12)
[2016-11-24 23:01] LABS: ANISOCYTOSIS 2+
[2016-11-24 23:02] LABS: MICROCYTOSIS 1+
[2016-11-25] MEDS: PIPERACILLIN/TAZOB 3.375 GM 50 ML IVPB SCH ×3 (01:23→17:48)
[2016-11-25] MEDS: ENOXAPARIN NA (PORCINE) 40 MG/0.4 ML DISP.SYRIN SQ SCH (10:00)
[2016-11-25] MEDS: PANTOPRAZOLE 40 MG TABLET (FP) PO SCH (10:02)
[2016-11-25] MEDS: HYDROCHLOROTHIAZIDE 25 MG TABLET (FP) PO SCH (10:02)
[2016-11-25] MEDS: CITALOPRAM HYDROBROMIDE 20 MG TABLET (FP) PO SCH (10:02)
[2016-11-25] MEDS: VANCOMYCIN 1 GRAM (PRE-DOCKED) 250 ML IVPB SCH (10:02)
[2016-11-25] MEDS: LOSARTAN POTASSIUM 25 MG TABLET PO SCH (10:02)
[2016-11-25 10:24] LABS: BASOPHIL 0.4 % (0-2.0); EOSINOPHIL 2.4 % (0-4.5); MCH 26.3 pg (25.7-33.7); MCHC 31.2 g/dl (32.0-36.0); MEAN CELL VOLUME 84.4 fl (80-96); MEAN PLT VOLUME 6.9 fl (7.5-11.1); NEUTROPHILS 77.9 % (42.8-82.8); PLATELET COUNT 363 K/MM3 (134-434); RDW 20.8 % (11.6-15.6); WHITE BLOOD COUNT 6.1 K/mm3 (4.0-10.0)
[2016-11-25 10:46] LABS: CALCIUM 8.3 mg/dl (8.4-10.2)
[2016-11-25] MEDS: MUPIROCIN 2% TOPICAL OINTMENT 22 GM TUBE TP SCH (10:48)
--- NOTE | 2016-11-25 14:18 | PN ---
Physical Exam: SUBJECTIVE: Patient seen and examined, patient reports feeling well, denies tactile fever, wants to go home OBJECTIVE: patient is a 61 year old female with a significant past medical history of HTN, eosinophilic fasciitis, and recurrent skin abscesses for many years, h/o breast cancer diagnosed January 2016 s/p right-sided mastectomy on February 25, 2016. Initial surgery was followed by four more surgeries from February to August 2016 due to recurrent staph infection Patient was admitted from the emergency department for left shoulder cellulites Vital Signs Period Temp Pulse Resp BP Sys/Mancia Pulse Ox Last 24 Hr 98 F-99.3 F 67-70 16-18 118-137/46-59 93-96 physical examination GENERAL: The patient is awake, alert, and fully oriented, in no acute distress. HEAD: Normal with no signs of trauma. EYES: PERRL, extraocular movements intact, sclera anicteric, conjunctiva clear. No ptosis. ENT: Ears normal, nares patent, oropharynx clear without exudates, moist mucous membranes. NECK: Trachea midline, full range of motion, supple. LUNGS: Breath sounds equal, clear to auscultation bilaterally, no wheezes, no crackles, no accessory muscle use. HEART: Regular rate and rhythm, S1, S2 without murmur, rub or gallop LEFT SHOULDER: 3cm of induration, no erythema extending past marking no lymphangitis, no lymphadenopathy noted ABDOMEN: Soft, nontender, nondistended, normoactive bowel sounds, no guarding, no rebound, no hepatosplenomegaly, no masses. EXTREMITIES: 2+ pulses, warm, well-perfused, no edema. NEUROLOGICAL: Cranial nerves II through XII grossly intact. Normal speech, gait not observed. PSYCH: Normal mood, normal affect. SKIN: Warm, dry, normal turgor, no rashes or lesions noted Laboratory Results - last 24 hr 11/24/16 11/24/16 11/25/16 16:50 16:50 10:05 WBC 4.6 D 6.1 D RBC 3.55 L 3.30 L Hgb 9.4 L 8.7 L Hct 29.7 L 27.8 L MCV 83.6 84.4 MCHC 31.6 L 31.2 L RDW 20.3 H 20.8 H Plt Count 397 D 363 MPV 7.1 L 6.9 L Neutrophils % 65.3 D 77.9 Lymphocytes % 14.6 D 8.0 D Monocytes % 16.0 H 11.3 H Eosinophils % 3.7 2.4 Basophils % 0.4 0.4 Anisocytosis 2+ Microcytosis 1+ Sodium 139 Potassium 3.1 L Chloride 104 Carbon Dioxide 25 Anion Gap 10 BUN 5 L D Creatinine 0.8 Random Glucose 98 Calcium 8.7 Vancomycin Trough 11/25/16 11/25/16 10:05 10:05 WBC RBC Hgb Hct MCV MCHC RDW Plt Count MPV Neutrophils % Lymphocytes % Monocytes % Eosinophils % Basophils % Anisocytosis Microcytosis Sodium 140 Potassium 3.7 Chloride 106 Carbon Dioxide 25 Anion Gap 9 BUN 9 D Creatinine 1.0 D Random Glucose 172 H D Calcium 8.3 L Vancomycin Trough 6.391 Active Medications Generic Name Dose Route Start Last Admin Trade Name Freq PRN Reason Stop Dose Admin Acetaminophen 650 mg 11/22/16 23:47 11/23/16 16:23 Tylenol - PO 650 mg Q6H PRN Administration FEVER OR PAIN Citalopram Hydrobromide 20 mg 11/23/16 10:00 11/25/16 10:02 Celexa - PO 20 mg DAILY [facility] Administration Enoxaparin Sodium 40 mg 11/23/16 10:00 11/24/16 09:49 Lovenox - SQ 40 mg DAILY [facility] Administration Hydrochlorothiazide 25 mg 11/23/16 10:00 11/25/16 10:02 Hctz - PO 25 mg DAILY [facility] Administration Vancomycin HCl 250 mls @ 250 mls/hr 11/23/16 10:00 11/25/16 10:02 Vancomycin (Pre-Docked) IVPB 250 mls/hr DAILY [facility] Administration Piperacillin Sod/Tazobactam Sod 50 mls @ 100 mls/hr 11/22/16 19:00 11/25/16 09: 00 Zosyn 3.375gm Ivpb (Pre-Docked) IVPB 100 mls/hr Q8H-IV [facility] Administration Potassium Chloride/Sodium Chloride 1,000 mls @ 42 mls/hr 11/25/16 07:45 Ns+20 Meq Kcl - IV ASDIR [facility] Losartan Potassium 25 mg 11/25/16 10:00 11/25/16 10:02 Cozaar - PO 25 mg DAILY [facility] Administration Mupirocin 1 applic 11/23/16 10:00 11/24/16 10:00 Bactroban 2% Ointment - TP 1 applic DAILY [facility] Administration Oxycodone HCl 5 mg 11/22/16 18:37 11/23/16 16:00 Roxicodone - PO 5 mg QID PRN Administration PAIN Pantoprazole Sodium 40 mg 11/23/16 10:00 11/25/16 10:02 Protonix - PO 40 mg DAILY [facility] Administration Microbiology 11/23/16 01:37 Blood - Peripheral Venous Blood Culture - Preliminary NO GROWTH OBTAINED AFTER 48 HOURS, INCUBATION TO CONTINUE FOR 3 DAYS. 11/23/16 01:37 Blood - Peripheral Venous Blood Culture - Preliminary NO GROWTH OBTAINED AFTER 48 HOURS, INCUBATION TO CONTINUE FOR 3 DAYS. 11/22/16 15:15 Blood - Peripheral Venous Blood Culture - Preliminary NO GROWTH OBTAINED AFTER 48 HOURS, INCUBATION TO CONTINUE FOR 3 DAYS. 11/22/16 15:20 Blood - Peripheral Venous Blood Culture - Preliminary NO GROWTH OBTAINED AFTER 48 HOURS, INCUBATION TO CONTINUE FOR 3 DAYS. 11/22/16 16:00 Urine - Urine Clean Catch Urine Culture - Final NO GROWTH OBTAINED Imaging CT chest and left upper extremity: no evidence of abscess or fluid collection; subcutaneous thickening LUE; nonspecific left axillary lymph node prominence ASSESSMENT/PLAN: 1) heme/onc Breast cancer s/p mastectomy Neutropenia - pt on 8th chemotherapy - wbc 6.1, much improved - voice mail left for Dr Helm at [facility] [place] awaiting return phone call normocytic anemia - Hemoglobin 8.7, close monitoring, repeat CBC in a.m. 2) ID:Sepsis secondary to left upper extremity cellulitis - pt afebrile neutropenic precautions - continue vanco & zosyn - ID consulted and followed 3) card Hypertension - b/p well controlled - continue losartan and hctz F/E/N Fluids: NS @ 43mL/hr Electrolytes: replete as indicated Nutrition: neutropenic diet DVT prophylaxis: lovenox, oob Dispo: continues to require inpatient care. Full Code. lengthy conversation with patient in regards to transfer to [facility] for further management. Patient adamantly declines at this time. Visit type - Emergency Visit Emergency Visit: Yes ED Registration Date: 11/22/16 Care time: The patient presented to the Emergency Department on the above date and was hospitalized for further evaluation of their emergent condition. - New Patient This patient is new to me today: No - Critical Care Critical Care patient: No - Discharge Referral Referred to [facility] Med [facility] No
--- NOTE | 2016-11-25 15:28 | PN ---
Progress Note, Physician History of Present Illness: feels better swelling and erythema still present - Current Medication List Current Medications: Active Medications Acetaminophen (Tylenol -) 650 mg PO Q6H PRN PRN Reason: FEVER OR PAIN Last Admin: 11/23/16 16:23 Dose: 650 mg Citalopram Hydrobromide (Celexa -) 20 mg PO DAILY [facility] Last Admin: 11/25/16 10:02 Dose: 20 mg Enoxaparin Sodium (Lovenox -) 40 mg SQ DAILY [facility] Last Admin: 11/24/16 09:49 Dose: 40 mg Hydrochlorothiazide (Hctz -) 25 mg PO DAILY [facility] Last Admin: 11/25/16 10:02 Dose: 25 mg Vancomycin HCl (Vancomycin (Pre-Docked)) 250 mls @ 250 mls/hr IVPB DAILY [facility] Last Admin: 11/25/16 10:02 Dose: 250 mls/hr Piperacillin Sod/Tazobactam Sod (Zosyn 3.375gm Ivpb (Pre-Docked)) 50 mls @ 100 mls/hr IVPB Q8H-IV [facility] Last Admin: 11/25/16 09:00 Dose: 100 mls/hr Potassium Chloride/Sodium Chloride (Ns+20 Meq Kcl -) 1,000 mls @ 42 mls/hr IV ASDIR [facility] Losartan Potassium (Cozaar -) 25 mg PO DAILY [facility] Last Admin: 11/25/16 10:02 Dose: 25 mg Mupirocin (Bactroban 2% Ointment -) 1 applic TP DAILY [facility] Last Admin: 11/24/16 10:00 Dose: 1 applic Oxycodone HCl (Roxicodone -) 5 mg PO QID PRN PRN Reason: PAIN Last Admin: 11/23/16 16:00 Dose: 5 mg Pantoprazole Sodium (Protonix -) 40 mg PO DAILY [facility] Last Admin: 11/25/16 10:02 Dose: 40 mg - Objective Vital Signs: Vital Signs Temperature 99.3 F 11/25/16 04:00 Pulse Rate 67 11/24/16 22:00 Respiratory Rate 16 11/25/16 08:00 Blood Pressure 119/54 11/25/16 04:00 O2 Sat by Pulse Oximetry (%) 96 11/25/16 08:00 Constitutional: Yes: No Distress, Calm Neck: Yes: Supple Cardiovascular: Yes: Regular Rate and Rhythm Respiratory: Yes: Regular, CTA Bilaterally Musculoskeletal: Yes: WNL Extremities: Yes: Other (erythema present swelling still present) Neurological: Yes: Alert, Oriented Psychiatric: Yes: Alert Labs: CBC, BMP 11/25/16 10:05 11/25/16 10:05 INR, PTT INR 1.21 (0.82-1.09) 11/23/16 05:45 Assessment/Plan 61 year-old female with a PMH of HTN, recurrent skin abscesses, breast cancer s/ p mastectomy complicated by recurrent staph infections. Admitted for left upper extremity cellulitis and possible early abscess formation, and neutropenia. Breast cancer s/p mastectomy Leukopenia Sepsis secondary to left upper extremity cellulitis and possible abscess formation Hypertension fever looked at the ct scan results patient has multiple lymph nodes seen on the ct scan plan continue abx swelling decreased erythema better would like a surgical opinion as the swelling has still not decreased as patient has history of cancer would like to know what the lump is
[2016-11-25] MEDS: SODIUM CHLORIDE 0.9%/KCL 1,000 ML IV SCH (18:10)
[2016-11-26] MEDS: PIPERACILLIN/TAZOB 3.375 GM 50 ML IVPB SCH ×3 (01:55→17:12)
--- NOTE | 2016-11-26 08:28 | PN ---
[id number] OBJECTIVE:: patient is a 61 year old female with a significant past medical history of HTN, eosinophilic fasciitis, and recurrent skin abscesses for many years, h/o breast cancer diagnosed January 2016 s/p right-sided mastectomy on February 25, 2016. Initial surgery was followed by four more surgeries from February to August 2016 due to recurrent staph infection Patient was admitted from the emergency department for left shoulder cellulites Vital Signs Period Temp Pulse Resp BP Sys/Mancia Pulse Ox Last 24 Hr 98.1 F-98.4 F 56-65 17-20 119-146/57-79 93-97 GENERAL: The patient is awake, alert, and fully oriented,anxious. HEAD: Normal with no signs of trauma. EYES: PERRL, extraocular movements intact, sclera anicteric, conjunctiva clear. No ptosis. ENT: Ears normal, nares patent, oropharynx clear without exudates, moist mucous membranes. NECK: Trachea midline, full range of motion, supple. LUNGS: Breath sounds equal, clear to auscultation bilaterally, no wheezes, no crackles, no accessory muscle use. HEART: Regular rate and rhythm, S1, S2 without murmur, rub or gallop. ABDOMEN: Soft, nontender, nondistended, normoactive bowel sounds, no guarding, no rebound, no hepatosplenomegaly, no masses. EXTREMITIES: 2+ pulses, warm, well-perfused, no edema. NEUROLOGICAL: Cranial nerves II through XII grossly intact. Normal speech, gait not observed. PSYCH: Normal mood, normal affect. SKIN: Warm, dry, normal turgor, no rashes or lesions noted, 3cm of induration, not extending past marking no lymphangiitis, no lymphadenopathy noted. Laboratory Results - last 24 hr CBC WBC 6.2 K/mm3 (4.0-10.0) 11/26/16 08:15 RBC 3.28 M/mm3 (3.60-5.2) L 11/26/16 08:15 Hgb 8.7 GM/dl (10.7-15.3) L 11/26/16 08:15 Hct 27.6 % (32.4-45.2) L 11/26/16 08:15 MCV 84.1 fl (80-96) 11/26/16 08:15 MCHC 31.4 g/dl (32.0-36.0) L 11/26/16 08:15 RDW 20.4 % (11.6-15.6) H 11/26/16 08:15 Plt Count 376 K/MM3 (134-434) 11/26/16 08:15 MPV 6.7 fl (7.5-11.1) L 11/26/16 08:15 Neutrophils % 76.7 % (42.8-82.8) 11/26/16 08:15 Lymphocytes % 10.5 % (8-40) D 11/26/16 08:15 Monocytes % 9.8 % (3.8-10.2) 11/26/16 08:15 Eosinophils % 2.7 % (0-4.5) 11/26/16 08:15 Basophils % 0.3 % (0-2.0) 11/26/16 08:15 Band Neutrophils 3.0 % (0-10) D 11/22/16 15:20 Metamyelocytes 4 % (0-2) H 11/22/16 15:20 Nucleated RBCs 3 % (0-0) H 11/22/16 15:20 Polychromasia Occ 11/22/16 15:20 Hypochromic-Microcytic 1+ 11/22/16 15:20 Anisocytosis 2+ 11/24/16 16:50 Microcytosis 1+ 11/24/16 16:50 Tear Drop Cells Occ 11/22/16 15:20 Ovalocytes 1+ 11/22/16 15:20 CMP Sodium 141 mmol/L (136-145) 11/26/16 08:15 Potassium 3.6 mmol/L (3.5-5.1) 11/26/16 08:15 Chloride 106 mmol/L (98-107) 11/26/16 08:15 Carbon Dioxide 27 mmol/L (22-28) 11/26/16 08:15 Anion Gap 8 (8-16) 11/26/16 08:15 BUN 12 mg/dl (7-18) D 11/26/16 08:15 Creatinine 0.8 mg/dl (0.6-1.3) 11/26/16 08:15 Creat Clearance w eGFR > 60 (>60) 11/23/16 05:45 Random Glucose 108 mg/dl (74-106) H D 11/26/16 08:15 Lactic Acid 0.830 mmol/L (0.4-2.0) 11/23/16 05:45 Calcium 8.7 mg/dl (8.4-10.2) 11/26/16 08:15 Magnesium 2.0 mg/dL (1.8-2.4) 11/26/16 08:15 Total Bilirubin 0.6 mg/dl (0.2-1.0) 11/23/16 05:45 AST 13 U/L (10-42) 11/23/16 05:45 ALT 10 U/L (10-40) 11/23/16 05:45 Alkaline Phosphatase 74 U/L (32-92) 11/23/16 05:45 C-Reactive Protein 3.9 MG/DL (0.00-0.3) H 11/22/16 15:20 Total Protein 5.4 g/dl (6.4-8.3) L 11/23/16 05:45 Albumin 3.0 g/dl (3.5-5.0) L 11/23/16 05:45 Active Medications Generic Name Dose Route Start Last Admin Trade Name Freq PRN Reason Stop Dose Admin Acetaminophen 650 mg 11/22/16 23:47 11/23/16 16:23 Tylenol - PO 650 mg Q6H PRN Administration FEVER OR PAIN Citalopram Hydrobromide 20 mg 11/23/16 10:00 11/25/16 10:02 Celexa - PO 20 mg DAILY [facility] Administration Enoxaparin Sodium 40 mg 11/23/16 10:00 11/25/16 10:00 Lovenox - SQ 40 mg DAILY [facility] Administration Hydrochlorothiazide 25 mg 11/23/16 10:00 11/25/16 10:02 Hctz - PO 25 mg DAILY [facility] Administration Vancomycin HCl 250 mls @ 250 mls/hr 11/23/16 10:00 11/25/16 10:02 Vancomycin (Pre-Docked) IVPB 250 mls/hr DAILY [facility] Administration Piperacillin Sod/Tazobactam Sod 50 mls @ 100 mls/hr 11/22/16 19:00 11/26/16 01: 55 Zosyn 3.375gm Ivpb (Pre-Docked) IVPB 100 mls/hr Q8H-IV [facility] Administration Potassium Chloride/Sodium Chloride 1,000 mls @ 42 mls/hr 11/25/16 07:45 18:10 Ns+20 Meq Kcl - IV 42 mls/hr ASDIR [facility] Administration Losartan Potassium 25 mg 11/25/16 10:00 11/25/16 10:02 Cozaar - PO 25 mg DAILY [facility] Administration Mupirocin 1 applic 11/23/16 10:00 11/25/16 10:48 Bactroban 2% Ointment - TP 1 applic DAILY [facility] Administration Oxycodone HCl 5 mg 11/22/16 18:37 11/23/16 16:00 Roxicodone - PO 5 mg QID PRN Administration PAIN Pantoprazole Sodium 40 mg 11/23/16 10:00 11/25/16 10:02 Protonix - PO 40 mg DAILY [facility] Administration Microbiology 11/23/16 01:37 Blood - Peripheral Venous Blood Culture - Preliminary NO GROWTH OBTAINED AFTER 72 HOURS, INCUBATION TO CONTINUE FOR 2 DAYS. 11/23/16 01:37 Blood - Peripheral Venous Blood Culture - Preliminary NO GROWTH OBTAINED AFTER 72 HOURS, INCUBATION TO CONTINUE FOR 2 DAYS. 11/22/16 15:15 Blood - Peripheral Venous Blood Culture - Preliminary NO GROWTH OBTAINED AFTER 72 HOURS, INCUBATION TO CONTINUE FOR 2 DAYS. 11/22/16 15:20 Blood - Peripheral Venous Blood Culture - Preliminary NO GROWTH OBTAINED AFTER 72 HOURS, INCUBATION TO CONTINUE FOR 2 DAYS. 11/22/16 16:00 Urine - Urine Clean Catch Urine Culture - Final NO GROWTH OBTAINED ASSESSMENT/PLAN: 1) heme/onc Breast cancer s/p mastectomy Neutropenia (resolved) - pt on 8th chemotherapy, continue neutropenic precautions - wbc , much improved - [place] [facility] [place] normocytic anemia - Hemoglobin , close monitoring, repeat CBC in a.m. 2) ID:Sepsis secondary to left upper extremity cellulitis - pt afebrile neutropenic precautions - induration to left shoulder, no fluctance, case discussed with Dr Juarez at bedside, I&D performed at bedside, wound culture sent - continue vanco & zosyn as per ID - ID consulted and followed 3) card Hypertension - b/p well controlled - continue losartan and hctz F/E/N Fluids: NS @ 43mL/hr Electrolytes: replete as indicated Nutrition: neutropenic diet DVT prophylaxis: lovenox, oob Dispo: continues to require inpatient care. Full Code. lengthy conversation with patient in regards to transfer to [facility] for further management. Patient adamantly declines at this time. Visit type - Emergency Visit Emergency Visit: Yes ED Registration Date: 11/22/16 Care time: The patient presented to the Emergency Department on the above date and was hospitalized for further evaluation of their emergent condition. - New Patient This patient is new to me today: No - Critical Care Critical Care patient: No - Discharge Referral Referred to [facility] Med P.C.: No
[2016-11-26] MEDS: VANCOMYCIN 1 GRAM (PRE-DOCKED) 250 ML IVPB SCH (09:00)
[2016-11-26 09:10] LABS: BASOPHIL 0.3 % (0-2.0); EOSINOPHIL 2.7 % (0-4.5); MCH 26.4 pg (25.7-33.7); MCHC 31.4 g/dl (32.0-36.0); MEAN CELL VOLUME 84.1 fl (80-96); MEAN PLT VOLUME 6.7 fl (7.5-11.1); NEUTROPHILS 76.7 % (42.8-82.8); PLATELET COUNT 376 K/MM3 (134-434); RDW 20.4 % (11.6-15.6); WHITE BLOOD COUNT 6.2 K/mm3 (4.0-10.0)
--- NOTE | 2016-11-26 09:13 | CONSULT ---
Consult Consult Specialty:: surgery Reason for Consultation:: L shoulder abscess - History of Present Illness Chief Complaint: L shoulder swelling/pain History of Present Illness: pt is a 61F immunocompromised from chemotherapy presents with swelling and pain in L shoulder. she says it is 40% better but still swollen. CT shows no obvious abscess. she has a freq hx of cutaneous abscesses. - Past Medical History ...: No - Alcohol/Substance Use Hx Alcohol Use: Yes (COUPLE TIMES A WEEK) - Smoking History Smoking history: Former smoker Have you smoked in the past 12 months: Yes Aproximately how many cigarettes per day: 10 If you are a former smoker, when did you quit?: 1 YR AGO Home Medications - Allergies Allergies/Adverse Reactions: Allergies Allergy/AdvReac Type Severity Reaction Status Date / Time No Known Allergies Allergy Verified 11/22/16 13:22 - Home Medications Home Medications: Ambulatory Orders Citalopram Hydrobromide [Celexa -] 20 mg PO DAILY 02/21/16 Hydrochlorothiazide [Hctz -] 25 mg PO DAILY 02/21/16 Losartan Potassium [Cozaar -] 25 mg PO DAILY 02/21/16 Omeprazole 20 mg PO DAILY 02/21/16 Oxycodone HCl [Roxicodone] 5 mg PO QID PRN 11/22/16 Review of Systems - Review of Systems Constitutional: reports: Chills. denies: Fever Eyes: denies: Blind Spots, Blurred Vision HENT: denies: Difficult Swallowing, Ear Discharge Neck: denies: Decreased ROM, Lumps Cardiovascular: denies: Chest Pain, Edema Respiratory: denies: Cough, Exercise Intolerance Gastrointestinal: denies: Abdominal Pain, Bloating Genitourinary: denies: Burning, Discharge Breasts: denies: Breast Implants, Lumps Musculoskeletal: denies: Back Pain, Crepitus Integumentary: denies: Blister, Bruising Neurological: denies: Change in LOC, Change in Speech Endocrine: denies: Excessive Sweating, Flushing Hematology/Lymphatic: denies: Easily Bruised, Excessive Bleeding Psychiatric: denies: Altered Sleep Pattern, Anxiety Physical Exam Vital Signs: Vital Signs Temperature 98.1 F 11/26/16 06:44 Pulse Rate 65 11/26/16 06:44 Respiratory Rate 20 11/26/16 06:44 Blood Pressure 121/57 11/26/16 06:44 O2 Sat by Pulse Oximetry (%) 94 L 11/26/16 06:44 Constitutional: Yes: No Distress, Calm Eyes: Yes: Conjunctiva Clear, EOM Intact HENT: Yes: Atraumatic, Normocephalic Neck: Yes: Supple, Trachea Midline Cardiovascular: Yes: Regular Rate and Rhythm Respiratory: Yes: Regular Gastrointestinal: Yes: Soft. No: Distention, Tenderness ...Rectal Exam: Yes: Deferred Renal/: No: CVA Tenderness - Left, CVA Tenderness - Right Musculoskeletal: No: Joint Stiffness, Joint Swelling Extremities: Yes: Other (L shoulder with 3cm diamter round and fluctuant mass. +blanching erythema. some induration. it is near two linear incisions.) Integumentary: No: Bruising, Erythema Neurological: Yes: Alert, Oriented Psychiatric: Yes: Alert, Oriented Imaging - Results Cat Scan: Report Reviewed, Image Reviewed Assessment/Plan patient with L shoulder abscess offered I&D under local anesthesia. patient is hesitant and afraid. given that she just ate will perform procedure tomorrow am with her being npo
[2016-11-26 09:15] LABS: CALCIUM 8.7 mg/dl (8.4-10.2); CREATININE 0.8 mg/dl (0.6-1.3)
[2016-11-26] MEDS ORDERED: LIDOCAINE HCL 1%, 10 MG/ML (50 mL VIAL) SQ ONE (09:28)
[2016-11-26] MEDS ORDERED: LIDOCAINE HCL 1%, 10 MG/ML (20ML VIAL) ONE (09:36)
[2016-11-26] MEDS ORDERED: diazePAM 5 MG TABLET PO STA (09:41)
[2016-11-26] MEDS ORDERED: POTASSIUM CHLORIDE TABS 20 MEQ TABLET.ER (FP) PO ONE (09:45)
--- NOTE | 2016-11-26 10:28 | PROC ---
Procedure Note Procedure: consent obtained. gave 10mg valium po. 30 min later injected 8 cc 1% lidocaine as wheal over fluctuance. made cruciate type incision in L shoulder and drained copious amounts of purulent material. probed and wound culture obtained. removed small corner of skin to prevent early closure. patient tolerated procedure well. from surgical standpoint she needs to wash wound with water frequently and apply dry gauze. can f/u with me in 1 week as outpt [phone]. can be discharged home from my standpoint.
[2016-11-26] MEDS ORDERED: HYDROmorphone HCL CARPU-JECT 2 MG/1 ML DISP.SYRIN IVPB ONE (10:30)
[2016-11-26] MEDS: PANTOPRAZOLE 40 MG TABLET (FP) PO SCH (10:52)
[2016-11-26] MEDS: HYDROCHLOROTHIAZIDE 25 MG TABLET (FP) PO SCH (10:52)
[2016-11-26] MEDS: LOSARTAN POTASSIUM 25 MG TABLET PO SCH (10:52)
[2016-11-26] MEDS: CITALOPRAM HYDROBROMIDE 20 MG TABLET (FP) PO SCH (10:52)
[2016-11-26] MEDS: MUPIROCIN 2% TOPICAL OINTMENT 22 GM TUBE TP SCH (10:54)
[2016-11-26] MEDS: oxyCODONE HCL 5 MG TABLET PO PRN (10:54)
--- NOTE | 2016-11-26 16:13 | PN ---
Progress Note, Physician History of Present Illness: patient stable post surgery lump removed - Current Medication List Current Medications: Active Medications Acetaminophen (Tylenol -) 650 mg PO Q6H PRN PRN Reason: FEVER OR PAIN Last Admin: 11/23/16 16:23 Dose: 650 mg Citalopram Hydrobromide (Celexa -) 20 mg PO DAILY [facility] Last Admin: 11/26/16 10:52 Dose: 20 mg Enoxaparin Sodium (Lovenox -) 40 mg SQ DAILY [facility] Last Admin: 11/25/16 10:00 Dose: 40 mg Hydrochlorothiazide (Hctz -) 25 mg PO DAILY [facility] Last Admin: 11/26/16 10:52 Dose: 25 mg Vancomycin HCl (Vancomycin (Pre-Docked)) 250 mls @ 250 mls/hr IVPB DAILY [facility] Last Admin: 11/26/16 09:00 Dose: 250 mls/hr Piperacillin Sod/Tazobactam Sod (Zosyn 3.375gm Ivpb (Pre-Docked)) 50 mls @ 100 mls/hr IVPB Q8H-IV [facility] Last Admin: 11/26/16 10:53 Dose: 100 mls/hr Potassium Chloride/Sodium Chloride (Ns+20 Meq Kcl -) 1,000 mls @ 42 mls/hr IV ASDIR [facility] Last Admin: 11/25/16 18:10 Dose: 42 mls/hr Losartan Potassium (Cozaar -) 25 mg PO DAILY [facility] Last Admin: 11/26/16 10:52 Dose: 25 mg Mupirocin (Bactroban 2% Ointment -) 1 applic TP DAILY [facility] Last Admin: 11/26/16 10:54 Dose: 1 applic Oxycodone HCl (Roxicodone -) 5 mg PO QID PRN PRN Reason: PAIN Last Admin: 11/26/16 10:54 Dose: 5 mg Pantoprazole Sodium (Protonix -) 40 mg PO DAILY [facility] Last Admin: 11/26/16 10:52 Dose: 40 mg - Objective Vital Signs: Vital Signs Temperature 99.7 F H 11/26/16 14:15 Pulse Rate 74 11/26/16 14:15 Respiratory Rate 19 11/26/16 14:15 Blood Pressure 136/63 11/26/16 14:15 O2 Sat by Pulse Oximetry (%) 94 L 11/26/16 14:15 Constitutional: Yes: No Distress, Calm Cardiovascular: Yes: Regular Rate and Rhythm Respiratory: Yes: Regular, CTA Bilaterally Gastrointestinal: Yes: Normal Bowel Sounds, Soft Musculoskeletal: Yes: WNL Extremities: Yes: Other Wound/Incision: Yes: Reddened, Other Neurological: Yes: Alert, Oriented Psychiatric: Yes: Alert Labs: CBC, BMP 11/26/16 08:15 11/26/16 08:15 INR, PTT INR 1.21 (0.82-1.09) 11/23/16 05:45 Assessment/Plan 61 year-old female with a PMH of HTN, recurrent skin abscesses, breast cancer s/ p mastectomy complicated by recurrent staph infections. Admitted for left upper extremity cellulitis and possible early abscess formation, and neutropenia. Breast cancer s/p mastectomy Leukopenia Sepsis secondary to left upper extremity cellulitis and possible abscess formation Hypertension fever looked at the ct scan results patient has multiple lymph nodes seen on the ct scan plan continue abx swelling decreased erythema better await for cx report will stop vanco for now
[2016-11-26] MEDS: SODIUM CHLORIDE 0.9%/KCL 1,000 ML IV SCH (19:47)
[2016-11-26] MEDS: ENOXAPARIN NA (PORCINE) 40 MG/0.4 ML DISP.SYRIN SQ SCH (19:48)
[2016-11-27] MEDS: PIPERACILLIN/TAZOB 3.375 GM 50 ML IVPB SCH ×3 (01:18→18:49)
[2016-11-27] MEDS: oxyCODONE HCL 5 MG TABLET PO PRN (08:15)
[2016-11-27] MEDS: SODIUM CHLORIDE 0.9%/KCL 1,000 ML IV SCH (08:15)
[2016-11-27 08:39] LABS: BASOPHIL 4.6 % (0-2.0); EOSINOPHIL 1.3 % (0-4.5); MCH 26.1 pg (25.7-33.7); MCHC 31.1 g/dl (32.0-36.0); MEAN CELL VOLUME 83.9 fl (80-96); MEAN PLT VOLUME 7.1 fl (7.5-11.1); NEUTROPHILS 77.6 % (42.8-82.8); PLATELET COUNT 337 K/MM3 (134-434); RDW 20.4 % (11.6-15.6); WHITE BLOOD COUNT 8.1 K/mm3 (4.0-10.0)
[2016-11-27 08:59] LABS: CALCIUM 8.6 mg/dl (8.4-10.2); CREATININE 0.8 mg/dl (0.6-1.3)
[2016-11-27] MEDS ORDERED: PT OWN MED DRAWER 7, Y5N ONE (09:50)
[2016-11-27] MEDS: ENOXAPARIN NA (PORCINE) 40 MG/0.4 ML DISP.SYRIN SQ SCH (10:04)
[2016-11-27] MEDS: PANTOPRAZOLE 40 MG TABLET (FP) PO SCH (10:04)
[2016-11-27] MEDS: LOSARTAN POTASSIUM 25 MG TABLET PO SCH (10:04)
[2016-11-27] MEDS: CITALOPRAM HYDROBROMIDE 20 MG TABLET (FP) PO SCH (10:04)
[2016-11-27] MEDS: HYDROCHLOROTHIAZIDE 25 MG TABLET (FP) PO SCH (10:04)
[2016-11-27] MEDS: MUPIROCIN 2% TOPICAL OINTMENT 22 GM TUBE TP SCH (10:07)
[2016-11-27] MEDS: LACTOBACILLUS ACIDOPHILUS 1 EACH TAB (FP) PO SCH (14:00)
--- NOTE | 2016-11-27 14:03 | PN ---
[id number] shoulder after showering this AM, anxiously awaiting culture results.patient reports loose stools. OBJECTIVE:patient is a 61 year old female with a significant past medical history of HTN, eosinophilic fasciitis, and recurrent skin abscesses for many years, h/o breast cancer diagnosed January 2016 s/p right-sided mastectomy on February 25, 2016. Initial surgery was followed by four more surgeries from February to August 2016 due to recurrent staph infection Patient was admitted from the emergency department for left shoulder cellulites, s/p I&D at bedside (11/26/16) Vital Signs Period Temp Pulse Resp BP Sys/Mancia Pulse Ox Last 24 Hr 97.9 F-99.7 F 55-74 18-20 108-136/50-63 92-96 GENERAL: The patient is awake, alert, and fully oriented, in no acute distress. HEAD: Normal with no signs of trauma. EYES: PERRL, extraocular movements intact, sclera anicteric, conjunctiva clear. No ptosis. ENT: Ears normal, nares patent, oropharynx clear without exudates, moist mucous membranes. NECK: Trachea midline, full range of motion, supple. LUNGS: Breath sounds equal, clear to auscultation bilaterally, no wheezes, no crackles, no accessory muscle use. HEART: Regular rate and rhythm, S1, S2 without murmur, rub or gallop. ABDOMEN: Soft, nontender, nondistended, normoactive bowel sounds, no guarding, no rebound, no hepatosplenomegaly, no masses. EXTREMITIES: 2+ pulses, warm, well-perfused, no edema. NEUROLOGICAL: Cranial nerves II through XII grossly intact. Normal speech, gait not observed. PSYCH: Normal mood, normal affect. SKIN: Warm, dry, normal turgor, no rashes or lesions noted, left anterior shoulder 2 cm incision, no drainage no erythema noted (much improved) Laboratory Results - last 24 hr 11/27/16 11/27/16 11/27/16 08:00 08:00 08:00 WBC 8.1 D RBC 3.28 L Hgb 8.6 L Hct 27.5 L MCV 83.9 MCHC 31.1 L RDW 20.4 H Plt Count 337 MPV 7.1 L Neutrophils % 77.6 Lymphocytes % 9.1 Monocytes % 7.4 Eosinophils % 1.3 Basophils % 4.6 H D Sodium 136 Potassium 5.7 H D Chloride 102 Carbon Dioxide 26 Anion Gap 8 BUN 10 Creatinine 0.8 Random Glucose 88 Calcium 8.6 Vancomycin Trough 5.487 Active Medications Generic Name Dose Route Start Last Admin Trade Name Freq PRN Reason Stop Dose Admin Acetaminophen 650 mg 11/22/16 23:47 11/23/16 16:23 Tylenol - PO 650 mg Q6H PRN Administration FEVER OR PAIN Citalopram Hydrobromide 20 mg 11/23/16 10:00 11/27/16 10:04 Celexa - PO 20 mg DAILY [facility] Administration Enoxaparin Sodium 40 mg 11/23/16 10:00 11/27/16 10:04 Lovenox - SQ 40 mg DAILY [facility] Administration Hydrochlorothiazide 25 mg 11/23/16 10:00 11/27/16 10:04 Hctz - PO 25 mg DAILY [facility] Administration Piperacillin Sod/Tazobactam Sod 50 mls @ 100 mls/hr 11/22/16 19:00 11/27/16 10: 06 Zosyn 3.375gm Ivpb (Pre-Docked) IVPB 100 mls/hr Q8H-IV [facility] Administration Lactobacillus Acidophilus 1 tab 11/27/16 12:00 Bacid - PO DAILY [facility] Losartan Potassium 25 mg 11/25/16 10:00 11/27/16 10:04 Cozaar - PO 25 mg DAILY [facility] Administration Mupirocin 1 applic 11/23/16 10:00 11/27/16 10:07 Bactroban 2% Ointment - TP 1 applic DAILY [facility] Administration Oxycodone HCl 5 mg 11/22/16 18:37 11/27/16 08:15 Roxicodone - PO 5 mg QID PRN Administration PAIN Pantoprazole Sodium 40 mg 11/23/16 10:00 11/27/16 10:04 Protonix - PO 40 mg DAILY [facility] Administration Microbiology 11/26/16 10:45 Abscess Gram Stain - Final 11/23/16 01:37 Blood - Peripheral Venous Blood Culture - Preliminary NO GROWTH OBTAINED AFTER 96 HOURS, INCUBATION TO CONTINUE FOR 1 DAYS. 11/23/16 01:37 Blood - Peripheral Venous Blood Culture - Preliminary NO GROWTH OBTAINED AFTER 96 HOURS, INCUBATION TO CONTINUE FOR 1 DAYS. 11/22/16 15:15 Blood - Peripheral Venous Blood Culture - Preliminary NO GROWTH OBTAINED AFTER 96 HOURS, INCUBATION TO CONTINUE FOR 1 DAYS. 11/22/16 15:20 Blood - Peripheral Venous Blood Culture - Preliminary NO GROWTH OBTAINED AFTER 96 HOURS, INCUBATION TO CONTINUE FOR 1 DAYS. 11/22/16 16:00 Urine - Urine Clean Catch Urine Culture - Final NO GROWTH OBTAINED ASSESSMENT/PLAN: 1) heme/onc Breast cancer s/p mastectomy Neutropenia (resolved) - pt on 8th chemotherapy, continue neutropenic precautions - wbc , much improved, patient afebrile normocytic anemia - Hemoglobin 8.6, close monitoring, transfuse if 7 or less, repeat CBC in a.m. 2) ID:Sepsis secondary to left upper extremity cellulitis - pt afebrile neutropenic precautions - awaiting final wound culture results to narrow down antibiotics, remains on zosyn as per ID - patient reports ongoing loose stools C. difficile culture ordered - ID consulted and followed 3) card Hypertension - b/p well controlled - continue losartan and hctz F/E/N Electrolytes: replete as indicated Nutrition: neutropenic diet DVT prophylaxis: lovenox, oob Dispo: continues to require inpatient care. Full Code. lengthy conversation with patient in regards to transfer to [facility] for further management. Patient adamantly declines at this time. Visit type - Emergency Visit Emergency Visit: Yes ED Registration Date: 11/22/16 Care time: The patient presented to the Emergency Department on the above date and was hospitalized for further evaluation of their emergent condition. - New Patient This patient is new to me today: No - Critical Care Critical Care patient: No - Discharge Referral Referred to [facility] Med P.C.: No
[2016-11-28] MEDS: PIPERACILLIN/TAZOB 3.375 GM 50 ML IVPB SCH ×2 (02:00→09:34)
[2016-11-28 08:44] LABS: BASOPHIL 0.4 % (0-2.0); EOSINOPHIL 1.9 % (0-4.5); MCH 26.2 pg (25.7-33.7); MCHC 31.3 g/dl (32.0-36.0); MEAN CELL VOLUME 83.8 fl (80-96); MEAN PLT VOLUME 7.4 fl (7.5-11.1); NEUTROPHILS 76.3 % (42.8-82.8); PLATELET COUNT 272 K/MM3 (134-434); RDW 20.4 % (11.6-15.6); WHITE BLOOD COUNT 5.7 K/mm3 (4.0-10.0)
[2016-11-28 09:01] LABS: ALBUMIN 3.1 g/dl (3.5-5.0); ALK PHOS 65 U/L (32-92); ANION GAP 8 (8-16); BILIRUBIN,TOTAL 0.4 mg/dl (0.2-1.0); CALCIUM 8.7 mg/dl (8.4-10.2); CO2 28 mmol/L (22-28); CREATININE 0.9 mg/dl (0.6-1.3); GLUCOSE,RANDOM 99 mg/dl (74-106); MAGNESIUM 1.8 mg/dL (1.8-2.4); SGOT/AST 15 U/L (10-42); SGPT/ALT 14 U/L (10-40); TOT PROT 5.9 g/dl (6.4-8.3)
[2016-11-28] MEDS: LOSARTAN POTASSIUM 25 MG TABLET PO SCH (09:32)
[2016-11-28] MEDS: HYDROCHLOROTHIAZIDE 25 MG TABLET (FP) PO SCH (09:32)
[2016-11-28] MEDS: CITALOPRAM HYDROBROMIDE 20 MG TABLET (FP) PO SCH (09:32)
[2016-11-28] MEDS: oxyCODONE HCL 5 MG TABLET PO PRN (09:32)
[2016-11-28] MEDS: ENOXAPARIN NA (PORCINE) 40 MG/0.4 ML DISP.SYRIN SQ SCH (09:32)
[2016-11-28] MEDS: LACTOBACILLUS ACIDOPHILUS 1 EACH TAB (FP) PO SCH (09:34)
[2016-11-28] MEDS: PANTOPRAZOLE 40 MG TABLET (FP) PO SCH (09:36)
--- NOTE | 2016-11-28 10:32 | DS ---
Physical Exam: SUBJECTIVE: Patient seen and examined, patient reports feeling well, denies any tactile fevers, reports minimal pain to the left shoulder. OBJECTIVE:61 year old female with a significant past medical history of HTN, eosinophilic fasciitis, and recurrent skin abscesses for many years. Patient also has h/o breast cancer diagnosed January 2016 s/p right-sided mastectomy on February 25, 2016. Initial surgery was followed by four more surgeries from February to August 2016 (removal of registered nurse bone marrow transplant secondary to infection, washout and revision for non-healing wound, removal of loculated areas of infection, debridement of scar tissue). Patient started chemotherapy in March 2016 and is presently in her 8th cycle. She has been treated twice with prolonged courses of Vanco for staph , most recently in August 2016. Six days ago patient noticed a bump on her left shoulder, followed by swelling, redness, and pain which brought her to the ED. Patient denies fever, sweats, chills. ER course was notable for: (1) T 98.4 (2) WBC 1.9k, ANC 580 (3) US bedside: no fluid collection seen Vital Signs Period Temp Pulse Resp BP Sys/Mancia Pulse Ox Last 24 Hr 97.7 F-98.9 F 55-70 18-20 118-158/47-87 95-98 PHYSICAL EXAM GENERAL: The patient is awake, alert, and fully oriented, in no acute distress. HEAD: Normal with no signs of trauma. EYES: PERRL, extraocular movements intact, sclera anicteric, conjunctiva clear. ENT: Ears normal, nares patent, oropharynx clear without exudates, moist mucous membranes. NECK: Trachea midline, full range of motion, supple. LUNGS: Breath sounds equal, clear to auscultation bilaterally, no wheezes, no crackles, no accessory muscle use. HEART: Regular rate and rhythm, S1, S2 without murmur, rub or gallop. ABDOMEN: Soft, nontender, nondistended, normoactive bowel sounds, no guarding, no rebound, no hepatosplenomegaly, no masses. EXTREMITIES: 2+ pulses, warm, well-perfused, no edema. NEUROLOGICAL: Cranial nerves II through XII grossly intact. Normal speech, gait not observed. PSYCH: Normal mood, normal affect. SKIN: Warm, dry, normal turgor, no rashes or lesions noted. LABS Laboratory Results - last 24 hr 11/27/16 11/28/16 11/28/16 Unknown 07:00 07:00 WBC 5.7 RBC 3.11 L Hgb 8.1 L Hct 26.0 L MCV 83.8 MCHC 31.3 L RDW 20.4 H Plt Count 272 MPV 7.4 L Neutrophils % 76.3 Lymphocytes % 10.7 Monocytes % 10.7 H Eosinophils % 1.9 Basophils % 0.4 Sodium 138 Potassium 3.7 D Chloride 102 Carbon Dioxide 28 Anion Gap 8 BUN 14 D Creatinine 0.9 Creat Clearance w eGFR > 60 Random Glucose 99 Calcium 8.7 Magnesium 2.1 1.8 Total Bilirubin 0.4 D AST 15 ALT 14 D Alkaline Phosphatase 65 Total Protein 5.9 L Albumin 3.1 L Microbiology 11/27/16 20:20 Stool Clostridium difficile Antigen (SHIRLEY) - Final 11/27/16 20:20 Stool Clostridium difficile Toxin Assay - Final 11/26/16 10:45 Abscess Gram Stain - Final 11/26/16 10:45 Abscess Wound Culture - Preliminary 11/23/16 01:37 Blood - Peripheral Venous Blood Culture - Final NO GROWTH AFTER 5 DAYS INCUBATION 11/23/16 01:37 Blood - Peripheral Venous Blood Culture - Final NO GROWTH AFTER 5 DAYS INCUBATION 11/22/16 15:15 Blood - Peripheral Venous Blood Culture - Final NO GROWTH AFTER 5 DAYS INCUBATION 11/22/16 15:20 Blood - Peripheral Venous Blood Culture - Final NO GROWTH AFTER 5 DAYS INCUBATION 11/22/16 16:00 Urine - Urine Clean Catch Urine Culture - Final NO GROWTH OBTAINED HOSPITAL COURSE: patient was admitted from the emergency department for cellulitis of the left shoulder, she was noted to be neutropenic upon arrival and admission from the emergency department. patientwas placed and remained on neutropenic precautions throughout admission. The neutropenia resolved. patient was noted to have normocytic anemia secondary to breast CA. Her hemoglobin remained stable at 8.6 patient did not require any blood transfusions during her hospitalization. she is noted have sepsis secondary to left upper extremity cellulitis. patient was placed on vancomycin and Zosyn on hospital day 1. Vancomycin was given for 4 days during her hospitalization. She was placed on zosyn for [address] Abraham Juarez general surgeon was consulted on hospital day 5. An incision and drainage was completed at the bedside by Dr. Juarez. preliminary wound cultures was negative. Antibiotics was discontinued at discharge She reported s ongoing loose stools C. difficile culture was negative and was placed on bacid. ID, Dr Choe was consulted and followed. She has a past medical history of hypertension, usually her losartan and hydrochlorothiazide was held secondary to sepsis. Her antihypertensives were restarted on hospital day 3 patient's blood pressure was well controlled throughout her hospitalization. Date of Admission:11/22/16 Date of Discharge: 11/28/16 Minutes to complete discharge: 45 Discharge Summary Reason For Visit: CELLULITIS,NEUTROPENIA & ANEMIA Current Active Problems Abscess (Acute) Cellulitis (Acute) Neutropenia (Acute) Condition: Improved - Instructions Diet, Activity, Other Instructions: resume, regular diet resume all medications as prescribed please wash wound with water daily and apply dry gauze Please follow-up with Dr. Juarez general surgeon within 1 week Please follow-up with infectious disease, Dr Choe, on T use today, 12/02/2016 You have a scheduled appointment with your oncologist Dr. Helm on Thursday at 9 AM at the [place] office Return to the emergency department immediately with ANY new, persistent or worsening symptoms. Referrals: Omero Choe MD [Staff Physician] - (please follow up with Dr Choe on 12/02/16 ) Abraham Juarez MD [Staff Physician] - 1 Week (please with Dr Juarez for a wound check within 1 week ) Bailey Helm [Non Staff, Medical] - (you have scheduled appt with Dr Helm on 12/03/16 at 9am ) Disposition: HOME - Home Medications Comprehensive Discharge Medication List: Ambulatory Orders Citalopram Hydrobromide [Celexa -] 20 mg PO DAILY 02/21/16 Hydrochlorothiazide [Hctz -] 25 mg PO DAILY 02/21/16 Losartan Potassium [Cozaar -] 25 mg PO DAILY 02/21/16 Omeprazole 20 mg PO DAILY 02/21/16 Oxycodone HCl [Roxicodone] 5 mg PO QID PRN 11/22/16 This patient is new to me today: No Emergency Visit: Yes ED Registration Date: 11/22/16 Care time: The patient presented to the Emergency Department on the above date and was hospitalized for further evaluation of their emergent condition. Critical Care patient: No - Discharge Referral Referred to [facility] No
--- NOTE | 2016-11-28 14:03 | PN ---
Progress Note, Physician History of Present Illness: doing well no complaints discuseed in detail with the patient about the care of the wound preliminary cx no growth - Current Medication List Current Medications: Active Medications Acetaminophen (Tylenol -) 650 mg PO Q6H PRN PRN Reason: FEVER OR PAIN Last Admin: 11/23/16 16:23 Dose: 650 mg Citalopram Hydrobromide (Celexa -) 20 mg PO DAILY [facility] Last Admin: 11/28/16 09:32 Dose: 20 mg Enoxaparin Sodium (Lovenox -) 40 mg SQ DAILY [facility] Last Admin: 11/28/16 09:32 Dose: 40 mg Hydrochlorothiazide (Hctz -) 25 mg PO DAILY [facility] Last Admin: 11/28/16 09:32 Dose: 25 mg Piperacillin Sod/Tazobactam Sod (Zosyn 3.375gm Ivpb (Pre-Docked)) 50 mls @ 100 mls/hr IVPB Q8H-IV [facility] Last Admin: 11/28/16 09:34 Dose: 100 mls/hr Lactobacillus Acidophilus (Bacid -) 1 tab PO DAILY [facility] Last Admin: 11/28/16 09:34 Dose: 1 tab Losartan Potassium (Cozaar -) 25 mg PO DAILY [facility] Last Admin: 11/28/16 09:32 Dose: 25 mg Mupirocin (Bactroban 2% Ointment -) 1 applic TP DAILY [facility] Last Admin: 11/27/16 10:07 Dose: 1 applic Oxycodone HCl (Roxicodone -) 5 mg PO QID PRN PRN Reason: PAIN Last Admin: 11/28/16 09:32 Dose: 5 mg Pantoprazole Sodium (Protonix -) 40 mg PO DAILY [facility] Last Admin: 11/28/16 09:36 Dose: 40 mg - Objective Vital Signs: Vital Signs Temperature 97.7 F 11/28/16 09:10 Pulse Rate 62 11/28/16 09:10 Respiratory Rate 19 11/28/16 09:10 Blood Pressure 118/87 11/28/16 09:10 O2 Sat by Pulse Oximetry (%) 95 11/28/16 07:50 Constitutional: Yes: No Distress, Calm HENT: Yes: Atraumatic Neck: Yes: Supple, Trachea Midline Cardiovascular: Yes: Regular Rate and Rhythm Respiratory: Yes: Regular, CTA Bilaterally Gastrointestinal: Yes: Normal Bowel Sounds, Soft Musculoskeletal: Yes: WNL Extremities: Yes: Other Wound/Incision: Yes: Dressing Dry and Intact Neurological: Yes: Alert, Oriented Psychiatric: Yes: Alert Labs: CBC, BMP 11/28/16 07:00 11/28/16 07:00 INR, PTT INR 1.21 (0.82-1.09) 11/23/16 05:45 Assessment/Plan 61 year-old female with a PMH of HTN, recurrent skin abscesses, breast cancer s/ p mastectomy complicated by recurrent staph infections. Admitted for left upper extremity cellulitis and possible early abscess formation, and neutropenia. Breast cancer s/p mastectomy Leukopenia Sepsis secondary to left upper extremity cellulitis and possible abscess formation Hypertension fever abscess of the rt arm looked at the ct scan results patient has multiple lymph nodes seen on the ct scan plan cx negative so far will stop all abx wound care rest as per the primary
[2016-11-28 14:30] VITALS: BP 135/57; PULSE 68; TEMP 97.5
== END 2016-11-28 16:50 | disposition home or self-care (01) | DRG 872 ==
LOC: FER 12:59 → FM/S 17:20
PROVIDERS: ADMIT Internal Medicine; ATTEND Nurse Practitioner Family
PROC: 0J9F0ZX Drainage of Left Upper Arm Subcutaneous Tissue and Fascia, Open Approach, Diagnostic (ICD-10-PCS; principal; 2016-11-26)
DX: A41.9 Sepsis, unspecified organism (principal); L03.114 Cellulitis of left upper limb; C50.911 Malignant neoplasm of unspecified site of right female breast; D70.8 Other neutropenia; I10 Essential (primary) hypertension; M72.8 Other fibroblastic disorders; K44.9 Diaphragmatic hernia without obstruction or gangrene; Z87.891 Personal history of nicotine dependence
CPT/HCPCS: 36415; 71250-TC; 73200-TC-RT; 80048; 80053; 81003; 81015; 83605; 83735; 85025; 85610; 86140; 86850; 86900; 86901; 87040; 87070; 87086; 87186; 87205; 87324; 87449; 93005; 97116-GP; 97161-GP; 99283-25; G0480

== ENCOUNTER 2017-08-19 17:20 | Observation (INO) | payer OTHER ==
--- NOTE | 2017-08-19 17:46 | PDOC ---
Attending Attestation - Resident Resident Name: Fred Pradhan - ED Attending Attestation I have performed the following: I have examined & evaluated the patient, The case was reviewed & discussed with the resident, I agree w/resident's findings & plan, Exceptions are as noted - HPI HPI: 08/19/17 18:35 Patient with recent onset of dyspnea on exertion, without other respiratory symptoms, and exacerbation of chronic low back pain. Recent mastectomy for breast cancer, status post radiation and chemotherapy, last chemotherapy February 2017. - Physicial Exam PE: 08/19/17 18:35 Vital signs are normal Lungs are clear with full breath sounds bilaterally. Respiratory rate 16 unlabored. O2 saturation 98%. No respiratory symptoms at rest CV regular without murmur rub or gallop Abdomen benign Extremities no CCE. No posterior calf swelling or tenderness - Medical Decision Making 08/19/17 18:36 Assessment: Mechanical low back pain, rule out metastases. Dyspnea on exertion, possibly due to exacerbation of COPD, CHF, chemotherapy medications, less likely pulmonary embolus or acute coronary syndrome.. All exacerbated by anxiety Plan: Labs and x-ray. Further evaluation depending on results. 08/19/17 18:44 EKG is normal sinus rhythm, normal axes and intervals, no ST-T wave changes, normal EKG. Awaiting laboratory studies. Signed out to Dr. Rojo 7 PM pending further evaluation. Patient comfortable, hemodynamically stable, no dyspnea at rest.
--- NOTE | 2017-08-19 18:13 | PDOC ---
History of Present Illness - General Chief Complaint: Back Pain Stated Complaint: BACK PAIN EDEMA LOWER EXTREMITIES OCC SOB Time Seen by Provider: 08/19/17 17:34 History Source: Patient Exam Limitations: No Limitations - History of Present Illness Initial Comments: 08/19/17 18:07 The patient is a 62F with a PMH of COPD, breast ca s/p chemo and mastectomy, who presents to the ED with worsening back pain and SOB. The patient states that she's had back pain x 5 days which has acutely worsened over the past 3 days with SOB. The patient states that her back pain is chronic but recently it has worsened and radiates b/l to her flanks, not associated with any genital numbness or tingling or incontinence, and not associated with fevers/chills. The patient states that she gets SOB with a few feet of walking. This has never happened before. The patient denies any hx of blood clots but does have a hx of kidney stones which she said this does not feel like. She denies fever, chills, CP, cough, incontinence. Past History - Past Medical History Allergies/Adverse Reactions: Allergies Allergy/AdvReac Type Severity Reaction Status Date / Time No Known Allergies Allergy Verified 08/19/17 17:26 Home Medications: Ambulatory Orders Citalopram Hydrobromide [Celexa -] 40 mg PO DAILY 02/21/16 Hydrochlorothiazide [Hctz -] 25 mg PO DAILY 02/21/16 Losartan Potassium [Cozaar -] 25 mg PO DAILY 02/21/16 Oxycodone HCl [Roxicodone] 5 mg PO QID PRN 11/22/16 Citalopram Hydrobromide [Celexa -] 40 mg PO DAILY 08/19/17 Clonazepam [KlonoPIN] 0.5 mg PO BID 08/19/17 Lansoprazole [Prevacid -] 30 mg PO DAILY 08/19/17 Letrozole [Femara -] 2.5 mg PO DAILY 08/19/17 Albuterol Sulfate Inhaler - [Ventolin HFA Inhaler -] 2 inh PO Q4H PRN #1 inh Mirtazapine [Remeron -] 15 mg PO HS #30 tablet 08/21/17 Potassium Chloride 20 meq PO DAILY #30 tablet.er 08/21/17 Tiotropium [place] [Spiriva] 1 puff IH DAILY #7 inh 08/21/17 Anemia: Yes Asthma: No Cancer: Yes (BREAST CANCER) Cardiac Disorders: Yes (ANGIOGRAM X 2, LAST 2010-STRESS AND ECHO 2012-ALL WNL) CVA: No COPD: Yes CHF: No Dementia: No Diabetes: No GI Disorders: Yes (HIATAL HERNIA,HEARTBURN) Disorders: No HTN: Yes Hypercholesterolemia: Yes Liver Disease: No Seizures: No Thyroid Disease: No - Surgical History Abdominal Surgery: Yes Appendectomy: No Cardiac Surgery: No Cholecystectomy: Yes Lung Surgery: No Neurologic Surgery: No Orthopedic Surgery: Yes (BILATERAL THR 10/2011, FELL AT REHAB, FX TROCHANTER WITH REPAIR 12/2011,) - Suicide/Smoking/Psychosocial Hx Smoking Status: No Smoking History: Former smoker Years of Tobacco Use: 20 Have you smoked in the past 12 months: Yes Number of Cigarettes Smoked Daily: 10 If you are a former smoker, when did you quit?: 1 YR AGO Hx Alcohol Use: Yes (COUPLE TIMES A WEEK) Drug/Substance Use Hx: No Substance Use Type: None Hx Substance Use Treatment: No Review of Systems - Review of Systems Able to Perform ROS?: Yes Comments:: 08/19/17 18:13 GENERAL/CONSTITUTIONAL: No fever or chills. No weakness. HEAD, EYES, EARS, NOSE AND THROAT: No change in vision. No ear pain or discharge. No sore throat. GASTROINTESTINAL: No vomiting, diarrhea, constipation, or abdominal pain. Positive for nausea. GENITOURINARY: No dysuria, frequency, hematuria, or change in urination. Positive for hx of stones. CARDIOVASCULAR: No chest pain, palpitations, or lightheadedness. RESPIRATORY: No cough, wheezing, or hemoptysis. Positive for SOB. MUSCULOSKELETAL: No joint or muscle swelling or pain. No neck pain. Positive for back pain, chronic. SKIN: No rash or lesions. NEUROLOGIC: No headache, tingling, weakness, loss of consciousness, or change in strength/sensation. Positive numbness in hands and feet, chronic. ENDOCRINE: No increased thirst. No abnormal weight change. HEMATOLOGIC/LYMPHATIC: No anemia, easy bleeding, or history of blood clots. ALLERGIC/IMMUNOLOGIC: No hives or skin allergy. Is the patient limited Swedish proficient: No Constitutional: No: Chills *Physical Exam - Physical Exam Comments: 08/19/17 18:15 GENERAL: Well developed, well nourished. Awake and alert. No acute distress. HEENT: Normocephalic, atraumatic. PERRLA, EOMI. No conjunctival pallor. Sclera are non- icteric. Moist mucous membranes. Oropharynx is clear. NECK: Supple. Full ROM. No JVD. Carotid pulses 2+ and symmetric, without bruits. No thyromegaly. No lymphadenopathy. CARDIOVASCULAR: Tachycardic with regular rhythm. No murmurs, rubs, or gallops. Distal pulses are 2+ and symmetric. PULMONARY: No evidence of respiratory distress. Lungs clear to auscultation bilaterally. No wheezing, rales or rhonchi. ABDOMINAL: Soft. Non-tender. Non-distended. No rebound or guarding. No organomegaly. Normoactive bowel sounds. GENITOURINARY: No CVA tenderness bilaterally. MUSCULOSKELETAL Normal range of motion at all joints. No bony deformities or tenderness. EXTREMITIES: No cyanosis. No clubbing. No edema. No calf tenderness. SKIN: Warm and dry. Normal capillary refill. No rashes. No jaundice. NEUROLOGICAL: Alert, awake, appropriate. Normal speech. Gait is normal without ataxia. PSYCHIATRIC: Cooperative. Good eye contact. Appropriate mood and affect. Heart Score/ECG Review - History History: Slightly suspicious - Electrocardiogram EKG: Normal - Age Age: 45-65 - Risk Factors Risk Factors Heart Score: Yes Smoking History, Yes Hx Obesity Based on the list above the patient has:: 1-2 risk factors - Troponin Troponin: </= normal limit - Score Heart Score - Total: 2 - ECG Impressions Normal ECG: Yes Non-specific ST Elevation: No Ischemic Changes: No Comment:: 08/19/17 18:19 NSR Rate 94 QRS 82 QTC 460 ED Treatment Course - LABORATORY CBC & Chemistry Diagram: 08/21/17 06:00 08/21/17 06:00 - RADIOLOGY Radiology Studies Ordered: Category Date Time Status CHEST PA & LAT [RAD] Stat Radiology 08/19/17 18:05 Ordered Medical Decision Making - Medical Decision Making 08/19/17 18:21 The patient is a 62F with a PMH of COPD and breast CA who presents to the ED with acutely worsening back pain and SOB. I have concerned for a PE for this patient because she does not rule out with her presentation and age. I am also concerned for ACS so I have ordered a cardiac profile but the patient has a negative EKG. Pending CXR and labs. Will reassess when labs and imaging return. 08/19/17 18:51 Patient signed out to night team. *DC/Admit/Observation/Transfer Diagnosis at time of Disposition: Dyspnea - Discharge Dispostion Disposition: HOME Condition at time of disposition: Improved - Prescriptions
[2017-08-19 18:22] VITALS: BMI 41.5
[2017-08-19 18:34] LABS: PH,URINE 5.5 (4.5-8); URINE APPEARANCE Clear; URINE BILIRUBIN 1+ (NEGATIVE); URINE BLOOD Negative (NEGATIVE); URINE COLOR YELLOW; URINE GLUCOSE (UA) Negative (NEGATIVE); URINE KETONE 1+ (NEGATIVE); URINE LEUK ESTERASE Negative (NEGATIVE); URINE NITRITE Negative (NEGATIVE); URINE PROTEIN 1+ (NEGATIVE)
[2017-08-19 18:42] LABS: URINE RBC 0-2 /hpf (0-3)
[2017-08-19 18:43] LABS: URINE BACTERIA FEW /hpf (NEGATIVE)
[2017-08-19] MEDS ORDERED: ALBUTEROL SO4 2.5/IPRATROPIUM 0.5 INH SOL 3 ML VIAL.NEB. NEB ONE ×2 (19:03→19:05)
[2017-08-19 19:38] LABS: BASOPHIL 2.2 % (0-2.0); EOSINOPHIL 1.5 % (0-4.5); MCHC 33.6 g/dl (32.0-36.0); MEAN CELL VOLUME 92.3 fl (80-96); MEAN PLT VOLUME 7.9 fl (7.5-11.1); NEUTROPHILS 77.8 % (42.8-82.8); PLATELET COUNT 219 K/MM3 (134-434); RDW 15.6 % (11.6-15.6); WHITE BLOOD COUNT 4.4 K/mm3 (4.0-10.8)
[2017-08-19 19:54] LABS: ALBUMIN 3.5 g/dl (3.5-5.0); ALK PHOS 89 U/L (32-92); ANION GAP 7 (8-16); BILIRUBIN,TOTAL 0.8 mg/dl (0.2-1.0); CO2 29 mmol/L (22-28); CPK 53 IU/L (26-192); CREATININE 0.7 mg/dl (0.6-1.3); GLUCOSE,RANDOM 120 mg/dl (74-106); SGOT/AST 22 U/L (10-42); SGPT/ALT 20 U/L (10-40); TOT PROT 6.6 g/dl (6.4-8.3)
[2017-08-19 20:28] LABS: TROPONIN I (DFP) < 0.03 ng/ml (0.03-0.50)
[2017-08-19 20:32] LABS: ARTERIAL BLD GAS O2 SATURATION 97.1 % (90-98.9); ARTERIAL BLOOD GAS BASE EXCESS 5.7 meq/l (-2-2); ARTERIAL BLOOD GAS PO2 85.9 mmHg (80-100); ARTERIAL BLOOD GAS pH 7.45 (7.35-7.45)
[2017-08-19 20:35] LABS: TYPE OF O2 ROOM AIR.
--- NOTE | 2017-08-20 00:03 | PDOC ---
*Physical Exam - Vital Signs Last Vital Signs Temp Pulse Resp BP Pulse Ox 98.6 F 75 20 110/46 94 L 08/19/17 20:26 08/19/17 20:26 08/19/17 20:26 08/19/17 20:26 08/19/17 20:26 ED Treatment Course - LABORATORY CBC & Chemistry Diagram: 08/19/17 19:20 08/19/17 19:20 - ADDITIONAL ORDERS Additional order review: Laboratory Results 08/19/17 08/19/17 08/19/17 19:20 19:20 19:20 D-Dimer 349 H Anticoagulation Therapy ABG pH ABG pCO2 at Pt Temp ABG pO2 at Pt Temp ABG HCO3 ABG O2 Sat (Measured) ABG O2 Content ABG Base Excess O2 Delivery Device Vent Mode Vent Rate Mechanical Rate Pressure Support Vent Sodium 138 Potassium 3.7 Chloride 102 Carbon Dioxide 29 H Anion Gap 7 L BUN 21 H D Creatinine 0.7 D Creat Clearance w eGFR > 60 Random Glucose 120 H D Calcium 9.0 Total Bilirubin 0.8 D AST 22 D ALT 20 D Alkaline Phosphatase 89 D Creatine Kinase 53 Troponin I < 0.03 L Total Protein 6.6 Albumin 3.5 Urine Color Urine Appearance Urine pH Ur Specific [place] Urine Protein Urine Glucose (UA) Urine Ketones Urine Blood Urine Nitrite Urine Bilirubin Urine Urobilinogen Ur Leukocyte Esterase Urine RBC Urine WBC Ur Epithelial Cells Urine Bacteria 08/19/17 08/19/17 18:55 18:25 D-Dimer Anticoagulation Therapy Y ABG pH 7.45 ABG pCO2 at Pt Temp 43.6 ABG pO2 at Pt Temp 85.9 ABG HCO3 30.0 H ABG O2 Sat (Measured) 97.1 ABG O2 Content 21.6 ABG Base Excess 5.7 H O2 Delivery Device Room air. Vent Mode Y Vent Rate Y Mechanical Rate Y Pressure Support Vent Y Sodium Potassium Chloride Carbon Dioxide Anion Gap BUN Creatinine Creat Clearance w eGFR Random Glucose Calcium Total Bilirubin AST ALT Alkaline Phosphatase Creatine Kinase Troponin I Total Protein Albumin Urine Color Yellow Urine Appearance Clear Urine pH 5.5 Ur Specific [place] 1.025 Urine Protein 1+ H Urine Glucose (UA) Negative Urine Ketones 1+ H Urine Blood Negative Urine Nitrite Negative Urine Bilirubin 1+ H Urine Urobilinogen 1.0 Ur Leukocyte Esterase Negative Urine RBC 0-2 Urine WBC 2-3 Ur Epithelial Cells Few Urine Bacteria Few 08/19/17 19:20 RBC 3.54 L MCV 92.3 MCHC 33.6 RDW 15.6 D MPV 7.9 Neutrophils % 77.8 Lymphocytes % 12.4 Monocytes % 6.1 Eosinophils % 1.5 Basophils % 2.2 H D - RADIOLOGY Radiology Studies Ordered: Category Date Time Status CHEST CTA [CT] Stat CT Scan 08/19/17 21:35 Completed - Medications Given in the ED: ED Medications Discontinued Medications Generic Name Dose Route Start Last Admin Trade Name Freq PRN Reason Stop Dose Admin Albuterol/Ipratropium 1 amp 08/19/17 19:03 08/19/17 19:08 Duoneb - NEB 08/19/17 19:04 1 amp ONCE ONE Administration Medical Decision Making - Medical Decision Making Care of this patient received from Dr. Alvarado. This 62-year-old woman with a recent history of right breast cancer, s/p right mastectomy with axillary node dissection followed by chemotherapy/radiation therapy presents with recent lower leg edema/facial edema and one-day history of worsening shortness of breath. Of note, patient is a smoker with a history of COPD. Workup included diagnosis studies to evaluate for pulmonary embolus/TX/exacerbation of COPD. Laboratory evaluation showed a CBC which was essentially normal. ABG on room air revealed pO2 of 85.9/pCO2 43.6 with a pH of 7.45. Chemistry showed BUN of 21 with a creatinine 0.6 and cardiac enzymes were not elevated. Chest x-ray and lumbosacral x-ray showed no evidence of acute process. Because d-dimer was slightly elevated (349), and patient has risk factors for thromboembolic disease, CT angiogram performed. This showed no evidence of pulmonary embolus. Likewise, no focal opacity to suggest pneumonia. There was some reticulation the right upper and right middle lobe (perhaps related to radiation treatment) also, there was evidence of chronic small vessel disease or air trapping in the upper lobes. There was no effusion or pneumothorax. Note was made of a 14 by 9 cm right chest wall fluid collection. On reexamination of the patient, stated area is around where the patient has had radiation skin changes. There is no tenderness or fluctuance in the area. Because of the unclear etiology patient's persistent shortness of breath, which is new for her , admission for full rule out of acute myocardial event and cardiology evaluation is warranted Patient's PMD is not on staff here; hospitalist service to be contacted. 08/20/17 00:18 Case discussed with KT Jones. Patient to be admitted observation status (Dr. Schreiber) *DC/Admit/Observation/Transfer Diagnosis at time of Disposition: Dyspnea Qualifiers: Dyspnea type: shortness of breath Qualified Code(s): R06.02 - Shortness of breath; R06.02 - Shortness of breath; R06.00 - Dyspnea, unspecified; R06.01 - Orthopnea - Discharge Dispostion Condition at time of disposition: Guarded Admit: Yes
[2017-08-20] MEDS: clonazePAM 0.5 MG TABLET PO PRN (03:34)
[2017-08-20] MEDS: oxyCODONE HCL 5 MG TABLET PO PRN ×2 (03:34→09:55)
[2017-08-20 04:06] LABS: CPK 65 IU/L (26-192)
[2017-08-20 04:07] LABS: TROPONIN I < 0.02 ng/ml (0.00-0.05)
--- NOTE | 2017-08-20 07:09 | HP ---
CHIEF COMPLAINT: dyspnea upon exertion PCP: Dr Vasquez ([place]) Oncologist: Dr Helm,[facility] [place] HISTORY OF PRESENT ILLNESS: Patient is a 62 y/o with a past medical history of copd, hypertension, eosinophilic fascitis, recurrent skin abscess, and breast Cancer diagnosed January 2016. Patient is s/p right sided mastectomy 02/25/16. Her initial surgery , was followed by four more surgeries from 03/10 to 09/10, removal of expanders, washout, revision for non-healing wound, removal of loculated area of infection , depbridment of scar tissue. Last dose of chemotherapy (cytotoxin, ferrosal, methotrexate) was 12/12 and last dose of radiation was 03/11. Patient reports worsening back pain which chronic with shortness of breath and dyspnea upon exertion within the past 3 days. She denies any dizziness or syncopal episodes. ER course was notable for: (1)ct of chest, no evidence of PE, 14x2.5 x9cm rim enhancing fluid collection in the right chest, right paratracheal lymph node is nonspecific and similar in size. (2) xray of lumbar spine, lumbar spondylisis (3) ekg nsr non specific st abnormality Recent Travel: none PAST MEDICAL HISTORY: see hpi PAST SURGICAL HISTORY: see hpi Social History: resides at home alone Smoking:none Alcohol:none Drugs: none Family History: non contributory to admission No Known Allergies Allergy (Verified 08/19/17 17:26) HOME MEDICATIONS: Home Medications Medication Instructions Recorded Citalopram Hydrobromide [Celexa -] 40 mg PO DAILY 02/21/16 Hydrochlorothiazide [Hctz -] 25 mg PO DAILY 02/21/16 Losartan Potassium [Cozaar -] 25 mg PO DAILY 02/21/16 Oxycodone HCl [Roxicodone] 5 mg PO QID PRN 11/22/16 Citalopram Hydrobromide [Celexa -] 40 mg PO DAILY 08/19/17 Clonazepam [KlonoPIN] 0.5 mg PO BID 08/19/17 Lansoprazole [Prevacid -] 30 mg PO DAILY 08/19/17 Letrozole [Femara -] 2.5 mg PO DAILY 08/19/17 REVIEW OF SYSTEMS CONSTITUTIONAL: Absent: fever, chills, diaphoresis, generalized weakness, malaise, loss of appetite, weight change HEENT: Absent: rhinorrhea, nasal congestion, throat pain, throat swelling, difficulty swallowing, mouth swelling, ear pain, eye pain, visual changes CARDIOVASCULAR: Absent: chest pain, syncope, palpitations, irregular heart rate, lightheadedness , peripheral edema RESPIRATORY: present: shortness of breath, dyspnea with exertion Absent: cough,orthopnea, wheezing, stridor, hemoptysis GASTROINTESTINAL: Absent: abdominal pain, abdominal distension, nausea, vomiting, diarrhea, constipation, melena, hematochezia GENITOURINARY: Absent: dysuria, frequency, urgency, hesitancy, hematuria, flank pain, genital pain MUSCULOSKELETAL: Absent: myalgia, arthralgia, joint swelling, back pain, neck pain SKIN: Absent: rash, itching, pallor HEMATOLOGIC/IMMUNOLOGIC: Absent: easy bleeding, easy bruising, lymphadenopathy, frequent infections ENDOCRINE: Absent: unexplained weight gain, unexplained weight loss, heat intolerance, cold intolerance NEUROLOGIC: Absent: headache, focal weakness or paresthesias, dizziness, unsteady gait, seizure, mental status changes, bladder or bowel incontinence PSYCHIATRIC: Absent: anxiety, depression, suicidal or homicidal ideation, hallucinations. PHYSICAL EXAMINATION Vital Signs - 24 hr 08/20/17 08/20/17 01:36 06:24 Temperature 98.3 F Pulse Rate 93 H Pulse Rate [ 85 Right Radial] Respiratory 14 18 Rate Blood Pressure 117/43 Blood Pressure 134/67 [Left Arm] O2 Sat by Pulse 100 95 Oximetry (%) GENERAL: obese, Awake, alert, and fully oriented, in no acute distress. HEAD: Normal with no signs of trauma. EYES: Pupils equal, round and reactive to light, extraocular movements intact, sclera anicteric, conjunctiva clear. No lid lag. EARS, NOSE, THROAT: Ears normal, nares patent, oropharynx clear without exudates. Moist mucous membranes. NECK: Normal range of motion, supple without lymphadenopathy, JVD, or masses. LUNGS: Breath sounds equal, clear to auscultation bilaterally. No wheezes, and no crackles. No accessory muscle use. HEART: Regular rate and rhythm, normal S1 and S2 without murmur, rub or gallop. ABDOMEN: Soft, nontender, not distended, normoactive bowel sounds, no guarding, no rebound, no masses. No hepatomegaly or splenomegaly. MUSCULOSKELETAL: Normal range of motion at all joints. No bony deformities or tenderness. No CVA tenderness. UPPER EXTREMITIES: 2+ pulses, warm, well-perfused. No cyanosis. No clubbing. No peripheral edema. LOWER EXTREMITIES: 2+ pulses, warm, well-perfused. No calf tenderness. No peripheral edema. NEUROLOGICAL: Cranial nerves II-XII intact. Normal speech. Normal gait. PSYCHIATRIC: Cooperative. Good eye contact. Appropriate mood and affect. SKIN: right ACW s/p masectomy, no erythema, no induration noted, Warm, dry, normal turgor, no rashes or lesions noted, normal capillary refill. Laboratory Results - last 24 hr 08/20/17 03:10 Creatine Kinase 65 Troponin I < 0.02 ASSESSMENT/PLAN: f/e/n - low sodium diet - replete potassium and magnesium ppx - lovenox - ppi dispo: requires tele obsv Problem List - Problem (1) Breast cancer Assessment/Plan: - continue femara, home dose - patient will require outpatient follow up, Dr Volodymyr MCKAY Code(s): C50.919 - MALIGNANT NEOPLASM OF UNSP SITE OF UNSPECIFIED FEMALE BREAST (2) COPD (chronic obstructive pulmonary disease) Assessment/Plan: -continue standing combivent nebulizers, no wheezing noted on exam - peak flow - keep spo2 above 92%, supplemental O2 prn Code(s): J44.9 - CHRONIC OBSTRUCTIVE PULMONARY DISEASE, UNSPECIFIED Qualifiers : Qualified Code(s): J44.9 - Chronic obstructive pulmonary disease, unspecified; J44.9 - Chronic obstructive pulmonary disease, unspecified; J44.9 - Chronic obstructive pulmonary disease, unspecified; J44.9 - Chronic obstructive pulmonary disease, unspecified (3) Dyspnea Assessment/Plan: - pending echo - peak flow - standing duonebs Code(s): R06.00 - DYSPNEA, UNSPECIFIED Qualifiers: Qualified Code(s): R06.02 - Shortness of breath; R06.02 - Shortness of breath; R06.00 - Dyspnea, unspecified; R06.01 - Orthopnea (4) Hypertension Assessment/Plan: - b/p well controlled, continue loosartan and hctz Code(s): I10 - ESSENTIAL (PRIMARY) HYPERTENSION Qualifiers: Qualified Code(s): I10 - Essential (primary) hypertension; I10 - Essential (primary) hypertension; I10 - Essential (primary) hypertension (5) Low back pain Assessment/Plan: - xray of lumbar spine reviewed, chronic spondylithesis, continue home prn pain medication oxycodone Code(s): M54.5 - LOW BACK PAIN Qualifiers: Qualified Code(s): M54.5 - Low back pain; M54.5 - Low back pain (6) Fluid collection at surgical site Assessment/Plan: - fluid collection noted on ct scan of chest, patient is afebrile no leukocytosis noted, will defer abx for now - appreciate the input of Dr Escalona/Efren Code(s): T88.8XXA - OTH COMPLICATIONS OF SURGICAL AND MEDICAL CARE, NEC, INIT (7) Hypokalemia Assessment/Plan: - repeat potassium 2.9, replete potassium-->kci 100meq x 3 with po potassium 40meq - repeat potassium at 1600 Code(s): E87.6 - HYPOKALEMIA Visit type - Emergency Visit Emergency Visit: Yes ED Registration Date: 08/20/17 Care time: The patient presented to the Emergency Department on the above date and was hospitalized for further evaluation of their emergent condition. - New Patient This patient is new to me today: Yes Date on this admission: 08/20/17 - Critical Care Critical Care patient: No
[2017-08-20 08:49] LABS: BASOPHIL 1.5 % (0-2.0); EOSINOPHIL 2.1 % (0-4.5); MCH 29.6 pg (25.7-33.7); MCHC 32.1 g/dl (32.0-36.0); MEAN CELL VOLUME 92.3 fl (80-96); MEAN PLT VOLUME 7.4 fl (7.5-11.1); NEUTROPHILS 66.8 % (42.8-82.8); PLATELET COUNT 215 K/MM3 (134-434); RDW 15.5 % (11.6-15.6)
--- NOTE | 2017-08-20 09:03 | EKG ---
Test Reason : Blood Pressure : / mmHG Vent. Rate : 094 BPM Atrial Rate : 094 BPM P-R Int : 120 ms QRS Dur : 082 ms QT Int : 368 ms P-R-T Axes : 048 032 044 degrees QTc Int : 460 ms SINUS RHYTHM NONSPECIFIC T WAVE ABNORMALITY WHEN COMPARED WITH ECG OF 22-NOV-2016 17:49, NO SIGNIFICANT CHANGE WAS FOUND Confirmed by GIOVANNA CREWS MD ([id number]) on 08/20/2017 9:03:18 AM Referred By: MD MOYER Confirmed By:GIOVANNA CREWS MD
[2017-08-20 09:24] LABS: CPK 42 IU/L (26-192)
[2017-08-20 09:25] LABS: ANION GAP 5 (8-16); CALCIUM 8.6 mg/dl (8.4-10.2); CO2 31 mmol/L (22-28); CREATININE 0.6 mg/dl (0.6-1.3); GLUCOSE,RANDOM 82 mg/dl (74-106); MAGNESIUM 1.9 mg/dL (1.8-2.4); PHOSPHOROUS 2.9 mg/dl (2.5-4.6)
[2017-08-20] MEDS: PANTOPRAZOLE 20 MG TABLET (FP) PO SCH (09:35)
[2017-08-20] MEDS: CITALOPRAM HYDROBROMIDE 20 MG TABLET (FP) PO SCH (09:35)
[2017-08-20] MEDS: HYDROCHLOROTHIAZIDE 25 MG TABLET (FP) PO SCH (09:35)
[2017-08-20] MEDS: LETROZOLE 2.5 MG TABLET (FP) PO SCH (09:38)
[2017-08-20] MEDS: LOSARTAN POTASSIUM 25 MG TABLET PO SCH (09:38)
[2017-08-20 09:52] LABS: TROPONIN I (DFP) < 0.03 ng/ml (0.03-0.50)
[2017-08-20] MEDS ORDERED: PORTA CATH FLUSH 10 ML IVPUSH ONE (10:02)
--- NOTE | 2017-08-20 10:08 | CON.CARD ---
Consult Consult Specialty:: Cardiology Referred by:: Hospitalist Medicine Reason for Consultation:: Dyspnea and LE edema - History of Present Illness Chief Complaint: Dyspnea and LE edema History of Present Illness: PCP: Lisandro Carranza Oncologist: [facility] [place] Dr. Helm Surgeon: [facility] [place] HISTORY OF PRESENT ILLNESS: 62-year-old woman with history of HTN right breast cancer, s/p right mastectomy with axillary node dissection followed by chemotherapy/radiation therapy presents with dependent edema and worsening shortness of breath. Of note, patient is a smoker with a history of COPD. CT angiogram performed. This showed no evidence of pulmonary embolus. Likewise, no focal opacity to suggest pneumonia. There was some reticulation the right upper and right middle lobe ( perhaps related to radiation treatment) also, there was evidence of chronic small vessel disease or air trapping in the upper lobes. There was no effusion or pneumothorax. Note was made of a 14 by 9 cm right chest wall fluid collection. Recent Travel: [place] August 2016 PAST MEDICAL HISTORY: Hypertension Eosinophilic fasciitis Recurrent skin abscesses Breast cancer complicated by recurrent staph infections Hiatal hernia PAST SURGICAL HISTORY: Right mastectomy and lymphadenectomy Cholecystectomy Bilateral total hip replacements (10/2011) Trochanter fracture repair (12/2011) Social History: Smokin years quit one year ago Alcohol: no Drugs: no Family History: none Allergies No Known Allergies Allergy (Verified 11/22/16 13:22) - History Source History Provided By: Patient Limitations to Obtaining History: No Limitations - Alcohol/Substance Use Hx Alcohol Use: Yes (COUPLE TIMES A WEEK) - Smoking History Smoking history: Former smoker Have you smoked in the past 12 months: Yes Aproximately how many cigarettes per day: 10 If you are a former smoker, when did you quit?: 1 YR AGO Home Medications - Allergies Allergies/Adverse Reactions: Allergies Allergy/AdvReac Type Severity Reaction Status Date / Time No Known Allergies Allergy Verified 08/19/17 17:26 - Home Medications Home Medications: Ambulatory Orders Citalopram Hydrobromide [Celexa -] 40 mg PO DAILY 02/21/16 Hydrochlorothiazide [Hctz -] 25 mg PO DAILY 02/21/16 Losartan Potassium [Cozaar -] 25 mg PO DAILY 02/21/16 Oxycodone HCl [Roxicodone] 5 mg PO QID PRN 11/22/16 Citalopram Hydrobromide [Celexa -] 40 mg PO DAILY 08/19/17 Clonazepam [KlonoPIN] 0.5 mg PO BID 08/19/17 Lansoprazole [Prevacid -] 30 mg PO DAILY 08/19/17 Letrozole [Femara -] 2.5 mg PO DAILY 08/19/17 Review of Systems - Review of Systems Respiratory: reports: SOB on Exertion Vital Signs: Vital Signs Temperature 98.3 F 08/20/17 06:24 Pulse Rate 93 H 08/20/17 06:24 Respiratory Rate 18 08/20/17 06:24 Blood Pressure 117/43 08/20/17 06:24 O2 Sat by Pulse Oximetry (%) 95 08/20/17 06:24 Constitutional: Yes: No Distress, Calm Neck: Yes: Supple Respiratory: Yes: Regular, Diminished Gastrointestinal: Yes: Normal Bowel Sounds, Soft, Abdomen, Obese Cardiovascular: Yes: Regular Rate and Rhythm JVD: No Carotid Bruit: No Heart Sounds: Yes: S1, S2 Edema: No - Other Data Labs, Other Data: CBC, BMP 08/20/17 08:30 08/20/17 08:30 Troponin, BNP 08/20/17 08/20/17 03:10 08:30 Troponin I < 0.02 < 0.03 L Troponin, BNP 08/20/17 08/20/17 03:10 08:30 Troponin I < 0.02 < 0.03 L NSR @ 94 nonspec T wave changes Echo: Pending Problem List - Problems (1) Dyspnea Code(s): R06.00 - DYSPNEA, UNSPECIFIED Qualifiers: Dyspnea type: shortness of breath Qualified Code(s): R06.02 - Shortness of breath; R06.02 - Shortness of breath; R06.00 - Dyspnea, unspecified ; R06.01 - Orthopnea (2) Hypertension Code(s): I10 - ESSENTIAL (PRIMARY) HYPERTENSION Qualifiers: Hypertension type: essential hypertension Qualified Code(s): I10 - Essential (primary) hypertension; I10 - Essential (primary) hypertension; I10 - Essential (primary) hypertension (3) Breast cancer Code(s): C50.919 - MALIGNANT NEOPLASM OF UNSP SITE OF UNSPECIFIED FEMALE BREAST Qualifiers: Patient sex: female Laterality: right (4) COPD (chronic obstructive pulmonary disease) Code(s): J44.9 - CHRONIC OBSTRUCTIVE PULMONARY DISEASE, UNSPECIFIED Qualifiers : COPD type: unspecified COPD Qualified Code(s): J44.9 - Chronic obstructive pulmonary disease, unspecified; J44.9 - Chronic obstructive pulmonary disease, unspecified; J44.9 - Chronic obstructive pulmonary disease, unspecified; J44.9 - Chronic obstructive pulmonary disease, unspecified (5) Tobacco abuse Code(s): Z72.0 - TOBACCO USE Assessment/Plan 1. Dyspnea on exertion, ruled out for PE, r/o LV dysfunction 2. COPD, tobacco abuse 3. Right breast cancer post chemotherapy (Cytoxan, 5-FU, MTX) and XRT 4. HTN/HCVD 5. Hypokalemia referable to HCTZ P:1. Ruled out for [place], check TSH, BNP 2. F/u echo to assess ventricular and valve fxn 3. Continue losartan, d/c HCTZ, replete K 4. Observe for clinical response with BD with peak flows 5. Thank you for consultative opportunity, suggest sleep study to r/o OSAS, PFTs as outpatient
[2017-08-20] MEDS ORDERED: MAGNESIUM SULFATE 2 GM in SODIUM CHLORIDE 100 ML IVPB ONE (10:15)
[2017-08-20] MEDS ORDERED: POTASSIUM CHLORIDE TABS 20 MEQ TABLET.ER (FP) PO ONE (10:15)
[2017-08-20] MEDS: KCL 10 MEQ IVPB 100 ML IVPB SCH ×3 (10:28→13:01)
[2017-08-20] MEDS: ALBUTEROL SO4 2.5/IPRATROPIUM 0.5 INH SOL 3 ML VIAL.NEB. NEB SCH ×2 (12:11→17:51)
[2017-08-20] MEDS: ENOXAPARIN NA (PORCINE) 40 MG/0.4 ML DISP.SYRIN SQ SCH (15:00)
--- NOTE | 2017-08-20 17:39 | CONSULT ---
Consult Consult Specialty:: Breast Surgery Reason for Consultation:: Fluid collection noted on chest CT - History of Present Illness Chief Complaint: back pain, shortness of breath History of Present Illness: 62-year old female with a history of COPD and HTN. She was diagnosed with right breast cancer in January 2016. She was seen at [facility] and treated with right mastectomy and insertion of a tissue spool carrier. Surgery was complicated by infection requiring multiple additional surgeries for removal of the implant, abscess drainage, and wound debridement. She completed chemotherapy in November 2016 and RT in February 2017. She came to the ED complaining of a 3-day history of severe back pain, shortness of breath and dyspnea on exertion. She denied fever or chills. Chest CT was negative for PE but did show a 14 x 2.5 x 9 cm fluid collection in the right chest not seen on previous imaging. Surgical consultation was requested because of this finding. The patient has no complaints today. She denies pain. She noticed swelling in the right chest wall during the past week. She has a right chest wall chemoport which is functioning well. - History Source History Provided By: Patient Limitations to Obtaining History: No Limitations - Past Medical History Cardio/Vascular: Yes: HTN Pulmonary: Yes: COPD Additional Medical History: Right breast cancer - Past Surgical History Past Surgical History: Yes: Mastectomy (Right mastectomy at [facility]) - Alcohol/Substance Use Hx Alcohol Use: Yes (COUPLE TIMES A WEEK) - Smoking History Smoking history: Former smoker Have you smoked in the past 12 months: Yes Aproximately how many cigarettes per day: 10 If you are a former smoker, when did you quit?: 1 YR AGO Home Medications - Allergies Allergies/Adverse Reactions: Allergies Allergy/AdvReac Type Severity Reaction Status Date / Time No Known Allergies Allergy Verified 08/19/17 17:26 - Home Medications Home Medications: Ambulatory Orders Citalopram Hydrobromide [Celexa -] 40 mg PO DAILY 02/21/16 Hydrochlorothiazide [Hctz -] 25 mg PO DAILY 02/21/16 Losartan Potassium [Cozaar -] 25 mg PO DAILY 02/21/16 Oxycodone HCl [Roxicodone] 5 mg PO QID PRN 11/22/16 Citalopram Hydrobromide [Celexa -] 40 mg PO DAILY 08/19/17 Clonazepam [KlonoPIN] 0.5 mg PO BID 08/19/17 Lansoprazole [Prevacid -] 30 mg PO DAILY 08/19/17 Letrozole [Femara -] 2.5 mg PO DAILY 08/19/17 Physical Exam Vital Signs: Vital Signs Temperature 98.2 F 08/20/17 14:00 Pulse Rate 81 08/20/17 14:00 Respiratory Rate 19 08/20/17 14:00 Blood Pressure 116/54 08/20/17 14:00 O2 Sat by Pulse Oximetry (%) 99 08/20/17 14:00 Constitutional: Yes: Well Nourished, No Distress Cardiovascular: Yes: Regular Rate and Rhythm Respiratory: Yes: CTA Bilaterally Gastrointestinal: Yes: Soft, Abdomen, Obese Breast(s): Yes: Right (The right chest wall incision is well healed. There is no tenderness, drainage or erythema. No significant fluid collection appreciated.) Labs: CBC, BMP 08/20/17 08:30 Imaging - Results Cat Scan: Report Reviewed, Image Reviewed (14x2.5x9 cm right chest wall fluid collection) Assessment/Plan 60-year old woman admitted yesterday with complaints of SOB and GOTTLIEB. Chest CT negative for PE but shows a right chest wall fluid collection. The patient is afebrile and labs are normal. Physical examination shows a healed surgical scar and a chemoport without signs of infection. There is no tenderness on examination. US guided aspiration and culture of the fluid is recommended given the patient's previous history of multiple infections in this area. I will follow-up with the patient in the AM
[2017-08-20 18:07] LABS: ANION GAP 6 (8-16); CALCIUM 8.6 mg/dl (8.4-10.2); CO2 30 mmol/L (22-28); CREATININE 0.6 mg/dl (0.6-1.3); GLUCOSE,RANDOM 120 mg/dl (74-106)
[2017-08-20 18:47] LABS: FREE T4 1.13 ng/dl (0.76-1.46); THYROID STIMULATING HORMONE 0.32 uIU/ml (0.358-3.74)
--- NOTE | 2017-08-20 19:05 | CON.PSY ---
Psychiatry Consult Chief Complaint: Asked to see this patient, a 62 year old female with a hx of Depression/Anxiety History of Present Problem: Patient states that she was doing ok in her usual state of health until about two years ago when she was diagnosed with breast cancer, had surgery with many complications. In addition, she lost both mother and father around the same time. Currently on Celexa 40 mgs and Remron 15 mg q hs. She reports a long hx of Depression and Anxiety long before her diagnosis of cancer and the of her parents. Admits to feeling overwhelm, poor sleep, low energy, and 'tired of being sick' Symptoms: reports: Depressed Mood, Decreased Energy, Sleep Disturbance, Irritability, Anxiety - Current Medications Current Medications: Active Medications Albuterol/Ipratropium (Duoneb -) 1 amp NEB QIDR [facility] Last Admin: 08/20/17 17:51 Dose: 1 amp Citalopram Hydrobromide (Celexa -) 40 mg PO DAILY [facility] Last Admin: 08/20/17 09:35 Dose: 40 mg Clonazepam (Klonopin -) 0.5 mg PO Q12H PRN PRN Reason: ANXIETY Last Admin: 08/20/17 03:34 Dose: 0.5 mg Enoxaparin Sodium (Lovenox -) 40 mg SQ DAILY [facility] Last Admin: 08/20/17 15:00 Dose: 40 mg Hydrochlorothiazide (Hctz -) 25 mg PO DAILY [facility] Last Admin: 08/20/17 09:35 Dose: 25 mg Letrozole (Femara -) 2.5 mg PO DAILY [facility] Last Admin: 08/20/17 09:38 Dose: Not Given Losartan Potassium (Cozaar -) 25 mg PO DAILY [facility] Last Admin: 08/20/17 09:38 Dose: 25 mg Oxycodone HCl (Roxicodone -) 5 mg PO Q6H PRN PRN Reason: PAIN Last Admin: 08/20/17 09:55 Dose: 5 mg Pantoprazole Sodium (Protonix -) 20 mg PO DAILY [facility] Last Admin: 08/20/17 09:35 Dose: 20 mg - Allergies Allergies: Allergies Allergy/AdvReac Type Severity Reaction Status Date / Time No Known Allergies Allergy Verified 08/19/17 17:26 - Current Living Status Usual Living Arrangement: Alone - Current Mental Status Evaluation Attitude: Cooperative - Affect Affect: Constrictive Appropriateness: Appropriate to Content - Mood Mood: Depressed - Speech/Language Receptive: Age Appropriate Comprehension of Spoken Words - Psychomotor Activity Psychomotor Activity: Normal - Thought Process Thought Process: Intact - Thought Content Hallucinations: Absent Delusions: Absent - Self Perception Self Perception: No Impairment - Cognition Attention: Alert Orientation: Time, Person, Place Memory, Immediate Recall: Intact Memory, Short Term: 3/3 Memory, Remote with Promptin/3 - Concentration Simple Calculations Intact: Yes - Abstraction Proverb Interpretation: Intact Judgement: Intact - Insight Insight: Intact - Suicidal Ideation Suicidal Ideation: No - Homicidal Ideation Homicidal Ideation: No
[2017-08-20] MEDS ORDERED: MIRTAZAPINE 15 MG TABLET (FP) PO SCH (22:00)
[2017-08-21] MEDS: ALBUTEROL SO4 2.5/IPRATROPIUM 0.5 INH SOL 3 ML VIAL.NEB. NEB SCH ×3 (06:05→11:31)
[2017-08-21 08:10] LABS: ANION GAP 6 (8-16); CALCIUM 8.5 mg/dl (8.4-10.2); CO2 30 mmol/L (22-28); CREATININE 0.7 mg/dl (0.6-1.3); GLUCOSE,RANDOM 84 mg/dl (74-106); MAGNESIUM 2.2 mg/dL (1.8-2.4); PHOSPHOROUS 3.6 mg/dl (2.5-4.6)
[2017-08-21 08:11] LABS: BASOPHIL 0.4 % (0-2.0); EOSINOPHIL 2.8 % (0-4.5); MCHC 32.1 g/dl (32.0-36.0); MEAN CELL VOLUME 93.4 fl (80-96); NEUTROPHILS 71.7 % (42.8-82.8); PLATELET COUNT 203 K/MM3 (134-434); RDW 16.1 % (11.6-15.6); WHITE BLOOD COUNT 4.7 K/mm3 (4.0-10.8)
[2017-08-21 09:08] VITALS: BP 147/71; PULSE 84; TEMP 98.7
[2017-08-21] MEDS: CITALOPRAM HYDROBROMIDE 20 MG TABLET (FP) PO SCH (09:22)
[2017-08-21] MEDS: HYDROCHLOROTHIAZIDE 25 MG TABLET (FP) PO SCH (09:22)
[2017-08-21] MEDS: PANTOPRAZOLE 20 MG TABLET (FP) PO SCH (09:22)
[2017-08-21] MEDS: LOSARTAN POTASSIUM 25 MG TABLET PO SCH (09:22)
[2017-08-21] MEDS: ENOXAPARIN NA (PORCINE) 40 MG/0.4 ML DISP.SYRIN SQ SCH (09:23)
--- NOTE | 2017-08-21 09:24 | PN ---
Progress Note, Physician History of Present Illness: Dyspnea on exertion improving with bronchodilators, declines u/s-guided drainage of right chest wall fluid collection. - Current Medication List Current Medications: Active Medications Albuterol/Ipratropium (Duoneb -) 1 amp NEB QIDR [facility] Last Admin: 08/21/17 06:05 Dose: 1 amp Citalopram Hydrobromide (Celexa -) 40 mg PO DAILY [facility] Last Admin: 08/20/17 09:35 Dose: 40 mg Clonazepam (Klonopin -) 0.5 mg PO Q12H PRN PRN Reason: ANXIETY Last Admin: 08/20/17 03:34 Dose: 0.5 mg Enoxaparin Sodium (Lovenox -) 40 mg SQ DAILY [facility] Last Admin: 08/20/17 15:00 Dose: 40 mg Hydrochlorothiazide (Hctz -) 25 mg PO DAILY [facility] Last Admin: 08/20/17 09:35 Dose: 25 mg Letrozole (Femara -) 2.5 mg PO DAILY [facility] Last Admin: 08/20/17 09:38 Dose: Not Given Losartan Potassium (Cozaar -) 25 mg PO DAILY [facility] Last Admin: 08/20/17 09:38 Dose: 25 mg Mirtazapine (Remeron -) 15 mg PO HS [facility] Last Admin: 08/20/17 21:37 Dose: 15 mg Oxycodone HCl (Roxicodone -) 5 mg PO Q6H PRN PRN Reason: PAIN Last Admin: 08/20/17 09:55 Dose: 5 mg Pantoprazole Sodium (Protonix -) 20 mg PO DAILY [facility] Last Admin: 08/20/17 09:35 Dose: 20 mg Potassium Chloride (K-Dur -) 40 meq PO DAILY [facility] - Objective Vital Signs: Vital Signs Temperature 98.7 F 08/21/17 09:07 Pulse Rate 84 08/21/17 09:07 Respiratory Rate 20 08/21/17 09:07 Blood Pressure 147/71 08/21/17 09:07 O2 Sat by Pulse Oximetry (%) 96 08/21/17 09:00 Constitutional: Yes: No Distress, Calm Neck: Yes: Supple Cardiovascular: Yes: Regular Rate and Rhythm Respiratory: Yes: Regular, Diminished Gastrointestinal: Yes: Normal Bowel Sounds, Soft Edema: No Labs: CBC, BMP 08/21/17 06:00 08/21/17 06:00 Problem List - Problems (1) Dyspnea Code(s): R06.00 - DYSPNEA, UNSPECIFIED Qualifiers: Qualified Code(s): R06.02 - Shortness of breath; R06.02 - Shortness of breath; R06.00 - Dyspnea, unspecified; R06.01 - Orthopnea (2) Hypertension Code(s): I10 - ESSENTIAL (PRIMARY) HYPERTENSION Qualifiers: Qualified Code(s): I10 - Essential (primary) hypertension; I10 - Essential (primary) hypertension; I10 - Essential (primary) hypertension (3) Breast cancer Code(s): C50.919 - MALIGNANT NEOPLASM OF UNSP SITE OF UNSPECIFIED FEMALE BREAST (4) COPD (chronic obstructive pulmonary disease) Code(s): J44.9 - CHRONIC OBSTRUCTIVE PULMONARY DISEASE, UNSPECIFIED Qualifiers : Qualified Code(s): J44.9 - Chronic obstructive pulmonary disease, unspecified; J44.9 - Chronic obstructive pulmonary disease, unspecified; J44.9 - Chronic obstructive pulmonary disease, unspecified; J44.9 - Chronic obstructive pulmonary disease, unspecified (5) Tobacco abuse Code(s): Z72.0 - TOBACCO USE Assessment/Plan 08/21/2017 Echo: Normal LV size and fxn, tr-mild TR 1. Dyspnea on exertion (bronchodilator-responsive) improving 2. COPD, tobacco abuse 3. Right breast cancer post chemotherapy (Cytoxan, 5-FU, MTX) and XRT with right chest wall fluid collection 4. HTN/HCVD 5. Hypokalemia referable to HCTZ P:1. Ruled out for [place] 2. Continue losartan 25 qd, replete K, BD as needed 3. May d/c home with pulm f/u, bronchodilators (long-acting and rescue inhalers) , recs on smoking cessation, sleep study to r/o OSAS, PFTs as outpatient
[2017-08-21] MEDS: LETROZOLE 2.5 MG TABLET (FP) PO SCH (09:26)
[2017-08-21] MEDS: oxyCODONE HCL 5 MG TABLET PO PRN (09:30)
[2017-08-21] MEDS: clonazePAM 0.5 MG TABLET PO PRN (09:31)
--- NOTE | 2017-08-21 09:31 | DS ---
Physical Exam: SUBJECTIVE: Patient seen and examined OBJECTIVE: Vital Signs Period Temp Pulse Resp BP Sys/Mancia Pulse Ox Last 24 Hr 98.0 F-98.7 F 73-95 18-20 108-147/45-71 95-99 PHYSICAL EXAM GENERAL: The patient is awake, alert, and fully oriented, in no acute distress. HEAD: Normal with no signs of trauma. EYES: PERRL, extraocular movements intact, sclera anicteric, conjunctiva clear. ENT: Ears normal, nares patent, oropharynx clear without exudates, moist mucous membranes. NECK: Trachea midline, full range of motion, supple. LUNGS: Breath sounds equal, clear to auscultation bilaterally, no wheezes, no crackles, no accessory muscle use. HEART: Regular rate and rhythm, S1, S2 without murmur, rub or gallop. ABDOMEN: Soft, nontender, nondistended, normoactive bowel sounds, no guarding, no rebound, no hepatosplenomegaly, no masses. EXTREMITIES: 2+ pulses, warm, well-perfused, no edema. NEUROLOGICAL: Cranial nerves II through XII grossly intact. Normal speech, gait not observed. PSYCH: Normal mood, normal affect. SKIN: Warm, dry, normal turgor, no rashes or lesions noted. LABS Laboratory Results - last 24 hr 08/20/17 08/20/17 08/20/17 08:30 08:30 17:20 WBC RBC Hgb Hct MCV MCH MCHC RDW Plt Count MPV Neutrophils % Lymphocytes % Monocytes % Eosinophils % Basophils % Sodium 138 138 Potassium 2.9 L* D 3.8 D Chloride 102 102 Carbon Dioxide 31 H 30 H Anion Gap 5 L 6 L BUN 17 14 Creatinine 0.6 0.6 Random Glucose 82 D 120 H D Calcium 8.6 8.6 Phosphorus 2.9 Magnesium 1.9 Creatine Kinase 42 Troponin I < 0.03 L Vitamin B12 TSH 0.32 L Free T4 1.13 08/20/17 08/21/17 08/21/17 17:20 06:00 06:00 WBC 4.7 RBC 3.29 L Hgb 9.9 L Hct 30.7 L MCV 93.4 MCH 30.0 MCHC 32.1 RDW 16.1 H Plt Count 203 MPV 8.0 Neutrophils % 71.7 Lymphocytes % 18.0 Monocytes % 7.1 Eosinophils % 2.8 Basophils % 0.4 Sodium 140 Potassium 3.5 Chloride 104 Carbon Dioxide 30 H Anion Gap 6 L BUN 12 Creatinine 0.7 Random Glucose 84 D Calcium 8.5 Phosphorus 3.6 D Magnesium 2.2 Creatine Kinase Troponin I Vitamin B12 545 TSH Free T4 HOSPITAL COURSE: Date of Admission:08/20/17 Date of Discharge: 08/21/17 Minutes to complete discharge: 45 Discharge Summary Reason For Visit: DYSPNEA Current Active Problems Breast cancer (Acute) COPD (chronic obstructive pulmonary disease) (Acute) Dyspnea (Acute) Fluid collection at surgical site (Acute) Hypertension (Acute) Hypokalemia (Acute) Tobacco abuse (Acute) Condition: Guarded - Home Medications Comprehensive Discharge Medication List: Ambulatory Orders Citalopram Hydrobromide [Celexa -] 40 mg PO DAILY 02/21/16 Hydrochlorothiazide [Hctz -] 25 mg PO DAILY 02/21/16 Losartan Potassium [Cozaar -] 25 mg PO DAILY 02/21/16 Oxycodone HCl [Roxicodone] 5 mg PO QID PRN 11/22/16 Citalopram Hydrobromide [Celexa -] 40 mg PO DAILY 08/19/17 Clonazepam [KlonoPIN] 0.5 mg PO BID 08/19/17 Lansoprazole [Prevacid -] 30 mg PO DAILY 08/19/17 Letrozole [Femara -] 2.5 mg PO DAILY 08/19/17 Problem List - Problems (1) Breast cancer Code(s): C50.919 - MALIGNANT NEOPLASM OF UNSP SITE OF UNSPECIFIED FEMALE BREAST (2) COPD (chronic obstructive pulmonary disease) Code(s): J44.9 - CHRONIC OBSTRUCTIVE PULMONARY DISEASE, UNSPECIFIED Qualifiers : Qualified Code(s): J44.9 - Chronic obstructive pulmonary disease, unspecified; J44.9 - Chronic obstructive pulmonary disease, unspecified; J44.9 - Chronic obstructive pulmonary disease, unspecified; J44.9 - Chronic obstructive pulmonary disease, unspecified (3) Dyspnea Code(s): R06.00 - DYSPNEA, UNSPECIFIED Qualifiers: Qualified Code(s): R06.02 - Shortness of breath; R06.02 - Shortness of breath; R06.00 - Dyspnea, unspecified; R06.01 - Orthopnea (4) Hypertension Code(s): I10 - ESSENTIAL (PRIMARY) HYPERTENSION Qualifiers: Qualified Code(s): I10 - Essential (primary) hypertension; I10 - Essential (primary) hypertension; I10 - Essential (primary) hypertension (5) Low back pain Code(s): M54.5 - LOW BACK PAIN Qualifiers: Qualified Code(s): M54.5 - Low back pain; M54.5 - Low back pain (6) Fluid collection at surgical site Code(s): T88.8XXA - OTH COMPLICATIONS OF SURGICAL AND MEDICAL CARE, NEC, INIT (7) Hypokalemia Code(s): E87.6 - HYPOKALEMIA
[2017-08-21] MEDS ORDERED: POTASSIUM CHLORIDE TABS 20 MEQ TABLET.ER (FP) PO SCH (10:00)
[2017-08-21] MEDS ORDERED: TIOTROPIUM BROMIDE 18 MCG/INH (DEVICE W/ 5 CAPSULES) IH SCH (10:00)
[2017-08-21] MEDS ORDERED: PT OWN MED DRAWER 7, Y5N ONE (11:43)
--- NOTE | 2017-08-21 13:09 | PN ---
Progress Note (short form) - Note Progress Note: Patient without complaints this morning Denies shortness of breath Afebrile, vitals stable No surgical intervention planned [place] [facility] [place] next appointment is in September.
== END 2017-08-21 12:50 | disposition home or self-care (01) ==
LOC: FER 17:20 → FM/S 08-20 01:24
PROVIDERS: ADMIT Internal Medicine; ATTEND Nurse Practitioner Family
PROC: 3E033GC Introduction of Other Therapeutic Substance into Peripheral Vein, Percutaneous Approach (ICD-10-PCS; principal; 2017-08-20)
PROC: 3E0337Z Introduction of Electrolytic and Water Balance Substance into Peripheral Vein, Percutaneous Approach (ICD-10-PCS; 2017-08-20)
PROC: 3E0F7GC Introduction of Other Therapeutic Substance into Respiratory Tract, Via Natural or Artificial Opening (ICD-10-PCS; 2017-08-20)
DX: R06.01 Orthopnea (principal); J44.9 Chronic obstructive pulmonary disease, unspecified; D64.9 Anemia, unspecified; K44.9 Diaphragmatic hernia without obstruction or gangrene; I10 Essential (primary) hypertension; E78.5 Hyperlipidemia, unspecified; C50.911 Malignant neoplasm of unspecified site of right female breast; E66.9 Obesity, unspecified; M54.5 Low back pain; G89.29 Other chronic pain; T88.8XXA Other specified complications of surgical and medical care, not elsewhere classified, initial encounter; Z92.21 Personal history of antineoplastic chemotherapy; Z90.11 Acquired absence of right breast and nipple; Z98.61 Coronary angioplasty status; Z87.891 Personal history of nicotine dependence; Z68.41 Body mass index [BMI] 40.0-44.9, adult
CPT/HCPCS: 36415; 36600; 71020-TC; 71275-TC; 72100-TC; 80048; 80053; 81003; 81015; 82375; 82550; 82607; 82803; 83050; 83735; 83880; 84100; 84439; 84443; 84484; 85025; 85379; 93005; 93306-TC; 94640; 96365; 96372; 99285-25; G0378

== ENCOUNTER 2017-08-27 16:27 | Emergency (ER) | payer OTHER ==
--- NOTE | 2017-08-27 16:34 | PDOC ---
History of Present Illness - General Chief Complaint: Wound Stated Complaint: LEFT SHOULDER ABCESS Time Seen by Provider: 08/27/17 16:29 History Source: Patient Exam Limitations: No Limitations - History of Present Illness Initial Comments: 08/27/17 16:29 62 y/o female with hx of abscesses presents to ER with left shoulder abscess for a few days. No fever or chills. Mild tenderness. No fall or trauma. Patient denies hx of MRSA, states that she gets this a lot. Patient states that this has been going on for 3 days, has gone to the OR before. Severity: Yes: mild Location: reports: extremities Past History - Past Medical History Allergies/Adverse Reactions: Allergies Allergy/AdvReac Type Severity Reaction Status Date / Time No Known Allergies Allergy Verified 08/27/17 16:29 Home Medications: Ambulatory Orders Hydrochlorothiazide [Hctz -] 25 mg PO DAILY 02/21/16 Losartan Potassium [Cozaar -] 25 mg PO DAILY 02/21/16 Oxycodone HCl [Roxicodone] 5 mg PO QID PRN 11/22/16 Citalopram Hydrobromide [Celexa -] 40 mg PO DAILY 08/19/17 Clonazepam [KlonoPIN] 0.5 mg PO BID 08/19/17 Mirtazapine [Remeron -] 15 mg PO HS #30 tablet 08/21/17 Potassium Chloride 20 meq PO DAILY #30 tablet.er 08/21/17 Tiotropium Dumont [Spiriva] 1 puff IH DAILY #7 inh 08/21/17 Clindamycin [Cleocin -] 300 mg PO TID #21 capsule 08/27/17 Anemia: Yes Asthma: No Cancer: Yes (BREAST CANCER) Cardiac Disorders: Yes (ANGIOGRAM X 2, LAST 2010-STRESS AND ECHO 2012-ALL WNL) CVA: No COPD: Yes CHF: No Dementia: No Diabetes: No GI Disorders: Yes (HIATAL HERNIA,HEARTBURN) Disorders: No HTN: Yes Hypercholesterolemia: Yes Liver Disease: No Seizures: No Thyroid Disease: No - Surgical History Abdominal Surgery: Yes Appendectomy: No Cardiac Surgery: No Cholecystectomy: Yes Lung Surgery: No Neurologic Surgery: No Orthopedic Surgery: Yes (BILATERAL THR 10/2011, FELL AT REHAB, FX TROCHANTER WITH REPAIR 12/2011,) - Suicide/Smoking/Psychosocial Hx Smoking Status: No Smoking History: Former smoker Years of Tobacco Use: 20 Have you smoked in the past 12 months: Yes Number of Cigarettes Smoked Daily: 10 If you are a former smoker, when did you quit?: 1 YR AGO 'Breaking Loose' booklet given: 08/20/17 Hx Alcohol Use: Yes (COUPLE TIMES A WEEK) Drug/Substance Use Hx: No Substance Use Type: None Hx Substance Use Treatment: No Review of Systems - Review of Systems Able to Perform ROS?: Yes Is the patient limited Polish proficient: No Constitutional: No: Chills, Fever Respiratory: No: Cough, Shortness of Breath Musculoskeletal: No: Joint Pain, Muscle Pain Integumentary: Yes: Erythema All Other Systems: Reviewed and Negative *Physical Exam - Physical Exam General Appearance: Yes: Nourished, Appropriately Dressed. No: Apparent Distress HEENT: positive: EOMI, DREA, Normal Voice Neck: positive: Trachea midline, Normal Thyroid, Supple. negative: Tender, Rigid Respiratory/Chest: positive: Lungs Clear, Normal Breath Sounds. negative: Chest Tender, Respiratory Distress Cardiovascular: positive: Regular Rhythm, Regular Rate, S1, S2. negative: Edema , JVD, Murmur Vascular Pulses: Femoral (R): 4+, Femoral (L): 4+, Carotid (R): 4+, Carotid (L) : 4+, Dorsalis-Pedis (R): 4+, Doralis-Pedis (L): 4+ Gastrointestinal/Abdominal: positive: Normal Bowel Sounds, Flat, Soft. negative : Tender, Organomegaly, Pulsatile Mass Lymphatic: negative: Adenopathy, Tenderness, Other Musculoskeletal: positive: Normal Inspection. negative: CVA Tenderness Extremity: positive: Normal Capillary Refill, Normal Inspection, Normal Range of Motion Integumentary: positive: Normal Color, Dry, Warm, Erythema (large erythematous fluctuant abscessto left shoulder with scarring, full ROM, no septic joint noted , pulses 2+/4 b/l in UE, no focal deficits noted), Swelling Neurologic: positive: package sorter II-XII NML intact, Fully Oriented, Alert, Normal Mood/ Affect, Normal Response, Motor Strength 5/5 Procedures - Incision and Drainage I&D Site: Left: Other (shoulder) Betadine cleansed: No Blade Size: 11 Complications: none Dressing: Yes Progress: 08/27/17 16:56 Only blood withdrawn, no purulent drainage with two incisions Progress Note - Progress Note Progress Note: Left shoulder abscess, needs ID, will place on Clindamycin as well. Ice, rest, Motrin Clindamycin 300mg 3x/day for 7days If worsens in [id number] hrs will need to have imaging studies and surgical eval Pt is in agreement with plan *DC/Admit/Observation/Transfer Diagnosis at time of Disposition: Abscess of left shoulder, Cellulitis of shoulder - Discharge Dispostion Disposition: HOME Condition at time of disposition: Good Admit: No - Patient Instructions Printed Discharge Instructions: DI for Skin Abscess, DI for Cellulitis -- Adult Additional Instructions: Ice, Motrin, rest Clindamycin 300mg 3x/day for 7 days If worsen return to ER in next 12-24 hr
[2017-08-27] MEDS ORDERED: CLINDAMYCIN HCL 150 MG CAPSULE (FP) ONE (16:53)
[2017-08-27] MEDS ORDERED: CLINDAMYCIN HCL 300 MG CAPSULE PO ONE (16:55)
[2017-08-27 17:03] VITALS: BP 127/83; PULSE 91; TEMP 99.4; BMI 39.6
== END 2017-08-27 17:09 | disposition home or self-care (01) ==
LOC: FER 16:27
PROC: 0H9CXZZ Drainage of Left Upper Arm Skin, External Approach (ICD-10-PCS; principal; 2017-08-27)
DX: L02.414 Cutaneous abscess of left upper limb (principal); L03.114 Cellulitis of left upper limb; Z87.891 Personal history of nicotine dependence; I10 Essential (primary) hypertension; Z85.3 Personal history of malignant neoplasm of breast
CPT/HCPCS: 99282-25

== ENCOUNTER 2017-08-28 15:38 | Emergency (ER) | payer OTHER ==
[2017-08-28 15:52] VITALS: BMI 39.6
--- NOTE | 2017-08-28 16:24 | PDOC ---
Attending Attestation - HPI HPI: 08/28/17 17:11 The patient is a 62 year old female, with a significant past medical history of COPD, HTN, recurrent skin abscesses, eosinophilic fasciitis and breast cancer diagnosed January 2016 s/p right mastectomy and finished with chemo radiation in February of this year, she presents to the emergency department with left shoulder skin abscess for 3 days. She reports fever and pain at the site. Abscess is approximately 10 by 10cm, warm, erythematous, and pus-filled. No current drainage at site. She states that it hurts when she tries to move her shoulder. She states that she did not eat or drink anything since last night in case she needs surgery for her abscess drainage since she has experienced these in the past. She denies recent chills, headache or dizziness. She denies recent nausea, vomit , diarrhea or constipation. She denies recent dysuria, frequency, urgency or hematuria. She denies recent chest pain or shortness of breath. Allergies: NKA Past surgical history: right breast mastectomy (02/2016). Social history: Nonsmoker. Denies EtOH use and recreational drug use. PCP: Dr. Vasquez ([place]) Oncologist: Dr. Helm [facility] [place] - Physicial Exam PE: 08/28/17 17:11 GENERAL: Awake, alert, and fully oriented, in no acute distress HEAD: No signs of trauma EYES: PERRLA, EOMI, sclera anicteric, conjunctiva clear ENT: Auricles normal inspection, hearing grossly normal, nares patent, oropharynx clear without exudates. Moist mucosa NECK: Normal ROM, supple, no lymphadenopathy, JVD, or masses LUNGS: Breath sounds equal, clear to auscultation bilaterally. No wheezes, and no crackles HEART: Regular rate and rhythm, normal S1 and S2, no murmurs, rubs or gallops ABDOMEN: Soft, nontender, normoactive bowel sounds. No guarding, no rebound. No masses EXTREMITIES: +10x10 cm left shoulder abscess, 8x10 cm injured area. 6x6 cm fluctuant area. +Red, hot, tender. No axillary lymph nodes. Limited ROM secondary to the swelling. No purulent drainage. No clubbing or cyanosis, or cords. NEUROLOGICAL: Cranial nerves II through XII grossly intact. Normal speech, normal gait SKIN: 10x10 cm left shoulder abscess. Multiple scars around left shoulder radiating to chest from previous abscess drainage. <Otilia Castañeda - Last Filed: 08/28/17 17:11> - Resident Resident Name: Kb Colón - ED Attending Attestation I have performed the following: I have examined & evaluated the patient, The case was reviewed & discussed with the resident, I agree w/resident's findings & plan, Exceptions are as noted - Medical Decision Making 09/04/17 03:24 08/28/17 16:24 I, Dr. Annalisa Mccann, DO, attest that this document has been prepared under my direction and personally reviewed by me in its entirety. I further attest, that it accurately reflects all work, treatment, procedures and medical decision -making performed by me. 08/28/17 17:08 a/p: 62yo female with L shoulder abscess -failed outpt abx -had I&D yesterday without purulent drainage only bloody discharge, today with larger abscess and increased fluctuance and surrounding erythema -recurrent site of prior abscesses -seen by Daija in the past. -seen by Dr. Abraham Juarez ([facility]) in the past forr I&D -will call Dr. Montero for consult -labs -cultures 08/28/17 17:45 Dr[address] Montero and Dr. Pérez at the bedside to see the patient and perform I&D Pt will be signed out to the oncoming ED physician pending re-eval after I&D. <Annalisa Mccann - Last Filed: 09/04/17 03:24> Discharge Disposition <Otilia Castañeda - Last Filed: 08/28/17 17:11> <Velma Rojo - Last Filed: 08/28/17 21:23> - Discharge Dispostion Last Admission D/C Date: 11/28/16 Admit: No <Annalisa Mccann - Last Filed: 09/04/17 03:24> - Diagnosis Abscess - Discharge Dispostion Disposition: HOME Condition at time of disposition: Stable - Prescriptions Prescriptions: Amox-Tr/K Cl [Augmentin - 875Mg Tablet] 1 tab PO BID #20 tablet Clindamycin [Cleocin -] 450 mg PO Q6H #120 capsule Oxycodone HCl [Roxicodone] 5 mg PO TID PRN #12 tablet MDD 3 tabs a day PRN Reason: Pain - Patient Instructions Additional Instructions: Postoperative instructions: You had a incision and drainage of your left shoulder abscess on 08/28/[address] Rey Harvey of [facility]. Activity: Resume your usual activities gradually, but no heavy exertion or lifting more than 10-15 pounds for 4-6 weeks. Remove dressings 24 hours after surgery, if they are not already off. You may shower daily starting then, just pat the incision areas dry. The wound should be packed with 1/2 iodoform packing at least twice before your follow-up on Sunday 09/02. Eat lightly at first, but advance to your usual diet as tolerated. Pain: For pain, you may use the provided pain medication in addition to your current regimen. Follow-up: Call Dr. Harvey' office at [phone] to make your postop appointment (Sunday 09/02 as advised). Clinic is held in the [facility] on the first floor of [facility]. Call the office if you have: * increasing pain not responsive to pain medication * fever of 101F or higher * vomiting * unusual or increasing bleeding or drainage from wounds * increasing redness or swelling at wound sites * inability to urinate Also, see your primary medical doctor within 1-2 weeks.
[2017-08-28] MEDS ORDERED: SODIUM CHLORIDE 0.9% 1000 ML INFUS.BAG IV ONE (16:36)
[2017-08-28] MEDS ORDERED: morphine CARPU-JECT 2 MG/1 ML DISP.SYRIN IVPUSH ONE (16:37)
[2017-08-28] MEDS ORDERED: morphine CARPU-JECT 2 MG/1 ML DISP.SYRIN ONE (17:23)
[2017-08-28 17:28] LABS: ALBUMIN 3.5 g/dl (3.5-5.0); ALK PHOS 81 U/L (32-92); ANION GAP 9 (8-16); BILIRUBIN,TOTAL 0.6 mg/dl (0.2-1.0); CALCIUM 8.6 mg/dl (8.4-10.2); CO2 26 mmol/L (22-28); CREATININE 1.2 mg/dl (0.6-1.3); GLUCOSE,RANDOM 102 mg/dl (74-106); SGOT/AST 18 U/L (10-42); SGPT/ALT 15 U/L (10-40); TOT PROT 6.9 g/dl (6.4-8.3)
[2017-08-28 17:42] LABS: BASOPHIL 0.3 % (0-2.0); EOSINOPHIL 1.8 % (0-4.5); MCH 31.3 pg (25.7-33.7); MCHC 34.3 g/dl (32.0-36.0); MEAN CELL VOLUME 91.4 fl (80-96); MEAN PLT VOLUME 7.7 fl (7.5-11.1); NEUTROPHILS 83.6 % (42.8-82.8); PLATELET COUNT 269 K/MM3 (134-434); RDW 15.4 % (11.6-15.6); WHITE BLOOD COUNT 8.8 K/mm3 (4.0-10.8)
[2017-08-28] MEDS ORDERED: LIDO 2%/EPI 1:200000 PRESRVFRE (20 ML SDVIAL) ONE (17:45)
[2017-08-28] MEDS ORDERED: diazePAM 5 MG TABLET PO ONE (17:46)
[2017-08-28] MEDS ORDERED: diazePAM 5 MG TABLET ONE (18:08)
--- NOTE | 2017-08-28 18:23 | PROC ---
Incision and Drainage Risks and Benefits Explained: Yes Consent on Chart: Yes Betadine cleansed: Yes Anesthesia: 1% Lidocaine w/ Epi Blade Size: 15 Irrigated with Normal Saline: Yes (saline and betadine) Iodinated Packin/2 in Sterile Dressing Applied: Yes - Remarks Remarks: Incision and drainage of left anterior shoulder complex recurrent abscess. informed consent obtained after risks, benefits and alternatives were explained. Area of the left anterior shoulder was prepped and draped in sterile fashion. Area anesthesia was applied and the area was drained with 1 inch cruciate incision. Culture sent. 3X2cm cavity was cleaned with a sponge. Loculations were broken in the cavity a finger and cotton tipped swabs. 50ml of foul smelling pus drained. Given 7 days of Augmentin and clindamcin. Wound packed with 1/2 inch iodoform packing with and a sterile dressing was applied.
[2017-08-28] MEDS ORDERED: MIDAZOLAM HCL 2 MG/2 ML SINGLE DOSE VIAL IVPUSH ONE (18:31)
--- NOTE | 2017-08-28 18:31 | CONSULT ---
Admitting History and Physical - Past Medical History Cardiovascular: Yes: HTN Pulmonary: Yes: COPD - Past Surgical History Past Surgical History: Yes: [place] [facility] [place] - Smoking History Smoking history: Current some day smoker Have you smoked in the past 12 months: Yes Aproximately how many cigarettes per day: 10 If you are a former smoker, when did you quit?: 1 YR AGO - Alcohol/Substance Use Hx Alcohol Use: No
--- NOTE | 2017-08-28 18:32 | PDOC ---
History of Present Illness - History of Present Illness Initial Comments: 08/28/17 18:25 62 yo F with h/o eosinophillic fascitis, recurrent abscess, and breast ca. s/p R sided mastectomy and chemoradiation treatment who presents with left shoulder abscess/cellulitis. Was recently seen ( 08/27 ) for left shoulder abscess I&D with no pus drainage. Sent home on Clindamycin 300 mg TID for 7 days with instructions to return if she experienced worsening symptoms. Endorses fevers of up to 102.7 for past 3 days. Denies N/V, chest pain, SOB, lightheadedness, weakness. Has had multiple I&D abscess drainage procedures in the past not requiring sedation in the OR. Denies oral intake since yesterday evening for concern of potential operation today for abscess. <Kb Colón - Last Filed: 08/28/17 18:25> <Velma Rojo - Last Filed: 08/28/17 21:09> - General Chief Complaint: Wound Stated Complaint: WOUND CHECK RIGHT SHOULDER Time Seen by Provider: 08/28/17 15:43 Past History - Past Medical History Anemia: Yes Asthma: No Cancer: Yes (BREAST CANCER) Cardiac Disorders: Yes (ANGIOGRAM X 2, LAST 2010-STRESS AND ECHO 2011-ALL WNL) CVA: No COPD: Yes CHF: No Dementia: No Diabetes: No GI Disorders: Yes (HIATAL HERNIA,HEARTBURN) Disorders: No HTN: Yes Hypercholesterolemia: Yes Liver Disease: No Seizures: No Thyroid Disease: No Other medical history: AUTO IMMUNE DISEASE - Surgical History Abdominal Surgery: Yes Appendectomy: No Cardiac Surgery: No Cholecystectomy: Yes Lung Surgery: No Neurologic Surgery: No Orthopedic Surgery: Yes (BILATERAL THR 10/2011, FELL AT REHAB, FX TROCHANTER WITH REPAIR 12/2011,) - Immunization History Immunization Up to Date: Yes - Suicide/Smoking/Psychosocial Hx Smoking Status: No Smoking History: Current some day smoker Years of Tobacco Use: 20 Have you smoked in the past 12 months: Yes Number of Cigarettes Smoked Daily: 10 If you are a former smoker, when did you quit?: 1 YR AGO Information on smoking cessation initiated: Yes 'Breaking Loose' booklet given: 08/27/17 Hx Alcohol Use: No Drug/Substance Use Hx: No Substance Use Type: None Hx Substance Use Treatment: No <Kb Colón - Last Filed: 08/28/17 18:25> <Velma Rojo - Last Filed: 08/28/17 21:09> - Past Medical History Allergies/Adverse Reactions: Allergies Allergy/AdvReac Type Severity Reaction Status Date / Time No Known Allergies Allergy Verified 08/28/17 15:39 Home Medications: Ambulatory Orders Hydrochlorothiazide [Hctz -] 25 mg PO DAILY 02/21/16 Losartan Potassium [Cozaar -] 25 mg PO DAILY 02/21/16 Oxycodone HCl [Roxicodone] 5 mg PO QID PRN 11/22/16 Citalopram Hydrobromide [Celexa -] 40 mg PO DAILY 08/19/17 Clonazepam [KlonoPIN] 0.5 mg PO BID 08/19/17 Mirtazapine [Remeron -] 15 mg PO HS #30 tablet 08/21/17 Potassium Chloride 20 meq PO DAILY #30 tablet.er 08/21/17 Tiotropium [place] [Spiriva] 1 puff IH DAILY #7 inh 08/21/17 Clindamycin [Cleocin -] 300 mg PO TID #21 capsule 08/27/17 Amox-Tr/K Cl [Augmentin - 875Mg Tablet] 1 tab PO BID #20 tablet 08/28/17 Clindamycin [Cleocin -] 450 mg PO Q6H #120 capsule 08/28/17 Oxycodone HCl [Roxicodone] 5 mg PO TID PRN #12 tablet MDD 3 tabs a day 08/28/17 Review of Systems - Review of Systems Comments:: 08/28/17 18:37 GENERAL/CONSTITUTIONAL: No fever or chills. No weakness. HEAD, EYES, EARS, NOSE AND THROAT: No change in vision. No ear pain or discharge. No sore throat.- CARDIOVASCULAR: No chest pain or shortness of breath RESPIRATORY: No cough, wheezing, or hemoptysis. GASTROINTESTINAL: No nausea, vomiting, diarrhea or constipation. GENITOURINARY: No dysuria, frequency, or change in urination. MUSCULOSKELETAL: + Left shoulder abscess/pain. No joint or muscle swelling or pain. No neck or back pain. SKIN: No rash NEUROLOGIC: No headache, vertigo, loss of consciousness, or change in strength/ sensation. ENDOCRINE: No increased thirst. No abnormal weight change HEMATOLOGIC/LYMPHATIC: No anemia, easy bleeding, or history of blood clots. ALLERGIC/IMMUNOLOGIC: No hives or skin allergy. <Yuriy Colónson - Last Filed: 08/28/17 18:25> *Physical Exam - Vital Signs Last Vital Signs Temp Pulse Resp BP Pulse Ox 98.7 F 87 20 135/69 97 08/28/17 15:39 08/28/17 18:17 08/28/17 18:17 08/28/17 18:17 08/28/17 15:39 - Physical Exam Comments: 08/28/17 18:39 GENERAL: Awake, alert, and fully oriented, in no acute distress HEAD: No signs of trauma, normocephalic, atraumatic EYES: PERRLA, EOMI, sclera anicteric, conjunctiva clear exudates. Moist mucosa NECK: Normal ROM, supple, no lymphadenopathy, JVD, or masses LUNGS: No distress, speaks full sentences, clear to auscultation bilaterally HEART: Regular rate and rhythm, normal S1 and S2, no murmurs, rubs or gallops, peripheral pulses normal and equal bilaterally. EXTREMITIES : Normal inspection, Normal range of motion, no edema. No clubbing or cyanosis. Left shoulder. 10 x 7 cm abscess present on left anterior/medial shoulder. + non demarcated erythema with no signs of streaking to suggest lymphangitis. Minimal pain with passive ROM of L shoulder. Pain with active ROM of L shoulder. absent pus drainage or active bleeding. + central punctum measuring 1 x 1 cm. + induration with fluctuance, and ttp. Absent axillary lymphadenopathy SKIN: Warm, Dry, normal turgor, no rashes or lesions noted. <Kb Colón - Last Filed: 08/28/17 18:25> - Vital Signs Last Vital Signs Temp Pulse Resp BP Pulse Ox 99 F 72 18 112/70 92 L 08/28/17 20:47 08/28/17 20:47 08/28/17 20:47 08/28/17 20:47 08/28/17 20:47 <Velma Rojo - Last Filed: 08/28/17 21:09> ED Treatment Course - LABORATORY CBC & Chemistry Diagram: 08/28/17 17:25 08/28/17 16:50 - ADDITIONAL ORDERS Additional order review: Laboratory Results 08/28/17 08/28/17 16:50 16:50 PT with INR Cancelled INR Cancelled PTT (Actin FS) Cancelled Sodium 133 L Potassium 3.7 Chloride 98 Carbon Dioxide 26 Anion Gap 9 BUN 28 H D Creatinine 1.2 D Creat Clearance w eGFR 45.52 Random Glucose 102 D Calcium 8.6 Total Bilirubin 0.6 D AST 18 ALT 15 D Alkaline Phosphatase 81 Total Protein 6.9 Albumin 3.5 08/28/17 08/28/17 17:25 16:50 RBC 2.98 L Cancelled MCV 91.4 Cancelled MCHC 34.3 Cancelled RDW 15.4 Cancelled MPV 7.7 Cancelled Neutrophils % 83.6 H Cancelled Lymphocytes % 6.5 L D Cancelled Monocytes % 7.8 Cancelled Eosinophils % 1.8 Cancelled Basophils % 0.3 Cancelled - Medications Given in the ED: ED Medications Discontinued Medications Generic Name Dose Route Start Last Admin Trade Name Beckq PRN Reason Stop Dose Admin Diazepam 10 mg 08/28/17 17:46 08/28/17 18:13 Valium - PO 08/28/17 17:47 10 mg ONCE ONE Administration Morphine Sulfate 2 mg 08/28/17 16:37 08/28/17 17:26 Morphine Injection - IVPUSH 08/28/17 16:38 2 mg ONCE ONE Administration Sodium Chloride 1,000 ml 08/28/17 16:36 08/28/17 17:22 Normal Saline - IV 08/28/17 16:37 1,000 ml ONCE ONE Administration <Kb Colón - Last Filed: 08/28/17 18:25> - LABORATORY CBC & Chemistry Diagram: 08/28/17 17:25 08/28/17 16:50 - ADDITIONAL ORDERS Additional order review: Laboratory Results 08/28/17 08/28/17 16:50 16:50 PT with INR Cancelled INR Cancelled PTT (Actin FS) Cancelled Sodium 133 L Potassium 3.7 Chloride 98 Carbon Dioxide 26 Anion Gap 9 BUN 28 H D Creatinine 1.2 D Creat Clearance w eGFR 45.52 Random Glucose 102 D Calcium 8.6 Total Bilirubin 0.6 D AST 18 ALT 15 D Alkaline Phosphatase 81 Total Protein 6.9 Albumin 3.5 08/28/17 08/28/17 17:25 16:50 RBC 2.98 L Cancelled MCV 91.4 Cancelled MCHC 34.3 Cancelled RDW 15.4 Cancelled MPV 7.7 Cancelled Neutrophils % 83.6 H Cancelled Lymphocytes % 6.5 L D Cancelled Monocytes % 7.8 Cancelled Eosinophils % 1.8 Cancelled Basophils % 0.3 Cancelled - Medications Given in the ED: ED Medications Discontinued Medications Generic Name Dose Route Start Last Admin Trade Name Michel PRN Reason Stop Dose Admin Diazepam 10 mg 08/28/17 17:46 08/28/17 18:13 Valium - PO 08/28/17 17:47 10 mg ONCE ONE Administration Midazolam HCl 1 mg 08/28/17 18:31 08/28/17 18:58 Versed - IVPUSH 08/28/17 18:32 1 mg ONCE ONE Administration Morphine Sulfate 2 mg 08/28/17 16:37 08/28/17 17:26 Morphine Injection - IVPUSH 08/28/17 16:38 2 mg ONCE ONE Administration Piperacillin/Tazobactam/Dextrose 4.5 gm 08/28/17 19:01 08/28/17 19:25 Zosyn 4.5gm Ivpb (Premix) IVPB 08/28/17 19:02 4.5 gm ONCE ONE Administration Sodium Chloride 1,000 ml 08/28/17 16:36 08/28/17 17:22 Normal Saline - IV 08/28/17 16:37 1,000 ml ONCE ONE Administration Vancomycin HCl 1,000 mg 08/28/17 19:00 08/28/17 20:05 Vancomycin (Pre-Docked) IVPB 08/28/17 19:01 1,000 mg ONCE ONE Administration Protocol <Velma Rojo - Last Filed: 08/28/17 21:09> Medical Decision Making - Medical Decision Making 08/28/17 18:41 62 yo F with h/o eosinophillic fascitis, recurrent abscess, and breast ca. s/p R sided mastectomy and chemoradiation treatment who presents with left shoulder abscess/cellulitis. Seen ( 08/27 ) in [facility] ED for left shoulder abscess I&D with no pus drainage. Sent home on Clindamycin 300 mg TID for 7 days with instructions to return if she experienced worsening symptoms. Presents today with worsening shoulder pain and expanding erythema and induration of abscess. No systemic complaints, fevers/chills, N/V. Physical exam reveals left shoulder fluctuant, abscess/cellulitis measuring 10 x 7 cm abscess with non demarcated erythema and no signs of streaking to suggest lymphangitis. Minimal pain with passive ROM of L shoulder. Pain with active ROM of L shoulder. Low suspicion for joint involvement or osteomyelitis. Absent axillary lymphadenopathy. Hemodynamically stable. Pt. has had multiple I&D abscess drainage procedures in the past not requiring sedation in the OR. Denies oral intake since yesterday evening for concern of potential operation today for abscess. ED Course: CBC, CMP, PT/INR, Blood Cx. Consulted general surgery for I&D. Per Dr. Winston garcia U/S and will come by to assess patient with Dr. Harvey. 08/28/17 18:45 Diazepam 10 mg PO 08/28/17 18:48 Mid[address] Harvey to perform I&D. <Kb Colón - Last Filed: 08/28/17 18:25> *DC/Admit/Observation/Transfer <Kb Colón - Last Filed: 08/28/17 18:25> <Velma Rojo - Last Filed: 08/28/17 21:09> Diagnosis at time of Disposition: Abscess - Discharge Dispostion Disposition: HOME Condition at time of disposition: Stable - Prescriptions Prescriptions: Amox-Tr/K Cl [Augmentin - 875Mg Tablet] 1 tab PO BID #20 tablet Clindamycin [Cleocin -] 450 mg PO Q6H #120 capsule Oxycodone HCl [Roxicodone] 5 mg PO TID PRN #12 tablet MDD 3 tabs a day PRN Reason: Pain - Patient Instructions Additional Instructions: Postoperative instructions: You had a incision and drainage of your left shoulder abscess on 08/28/[address] Rey Harvey of [facility]. Activity: Resume your usual activities gradually, but no heavy exertion or lifting more than 10-15 pounds for 4-6 weeks. Remove dressings 24 hours after surgery, if they are not already off. You may shower daily starting then, just pat the incision areas dry. The wound should be packed with 1/2 iodoform packing at least twice before your follow-up on Sunday 09/02. Eat lightly at first, but advance to your usual diet as tolerated. Pain: For pain, you may use the provided pain medication in addition to your current regimen. Follow-up: Call Dr. Harvey' office at [phone] to make your postop appointment (Tuesday 08/28 as advised). Clinic is held in the Diagnostic Center on the first floor of [facility]. Call the office if you have: * increasing pain not responsive to pain medication * fever of 101F or higher * vomiting * unusual or increasing bleeding or drainage from wounds * increasing redness or swelling at wound sites * inability to urinate Also, see your primary medical doctor within 1-2 weeks.
[2017-08-28] MEDS ORDERED: MIDAZOLAM HCL 2 MG/2 ML SINGLE DOSE VIAL ONE (18:36)
[2017-08-28] MEDS ORDERED: VANCOMYCIN 1 GRAM (PRE-DOCKED) 1,000 MG/250 ML BAG IVPB ONE (19:00)
[2017-08-28] MEDS ORDERED: PIPERACILLIN/TAZOB 4.5 GM/100 ML PREMIX BAG IVPB ONE (19:01)
--- NOTE | 2017-08-28 19:05 | CONSULT ---
Consult Consult Specialty:: general surgery Referred by:: austin toro Reason for Consultation:: Left anterior shoulder abscess - History of Present Illness Chief Complaint: Left shoulder abscess - History Source History Provided By: Patient Limitations to Obtaining History: No Limitations - Past Medical History Cardio/Vascular: Yes: HTN Pulmonary: Yes: COPD Additional Medical History: Right breast cancer - Past Surgical History Past Surgical History: Yes: Mastectomy (Right mastectomy at [facility] [place]) - Alcohol/Substance Use Hx Alcohol Use: No - Smoking History Smoking history: Current some day smoker Have you smoked in the past 12 months: Yes Aproximately how many cigarettes per day: 10 If you are a former smoker, when did you quit?: 1 YR AGO - Social History Usual Living Arrangement: Alone Home Medications - Allergies Allergies/Adverse Reactions: Allergies Allergy/AdvReac Type Severity Reaction Status Date / Time No Known Allergies Allergy Verified 08/28/17 15:39 - Home Medications Home Medications: Ambulatory Orders Hydrochlorothiazide [Hctz -] 25 mg PO DAILY 02/21/16 Losartan Potassium [Cozaar -] 25 mg PO DAILY 02/21/16 Oxycodone HCl [Roxicodone] 5 mg PO QID PRN 11/22/16 Citalopram Hydrobromide [Celexa -] 40 mg PO DAILY 08/19/17 Clonazepam [KlonoPIN] 0.5 mg PO BID 08/19/17 Mirtazapine [Remeron -] 15 mg PO HS #30 tablet 08/21/17 Potassium Chloride 20 meq PO DAILY #30 tablet.er 08/21/17 Tiotropium [place] [Spiriva] 1 puff IH DAILY #7 inh 08/21/17 Clindamycin [Cleocin -] 300 mg PO TID #21 capsule 08/27/17 Amox-Tr/K Cl [Augmentin - 875Mg Tablet] 1 tab PO BID #20 tablet 08/28/17 Clindamycin [Cleocin -] 450 mg PO Q6H #120 capsule 08/28/17 Oxycodone HCl [Roxicodone] 5 mg PO TID PRN #12 tablet MDD 3 tabs a day 08/28/17 Review of Systems - Review of Systems Constitutional: reports: Fever (qualitative low grade at home), Malaise Neck: reports: Pain on Movement, Other (chronic neck and back pain on opiate thearpy) Cardiovascular: reports: Shortness of Breath, Other (COPD, intermittent heavy smoker) Respiratory: reports: Cough, SOB, SOB on Exertion Breasts: reports: See HPI, Other (malignancy s/p right mastectomy and recieved chemo and radiation) Musculoskeletal: reports: Back Pain, Joint Pain Integumentary: reports: Eczema, Other (multiple healed scars left anterior shoulder) Psychiatric: reports: Anxiety, Depression Pain Intensity: 6 (suffers with chronic back pain ) Physical Exam Vital Signs: Vital Signs Temperature 98.7 F 08/28/17 15:39 Pulse Rate 87 08/28/17 18:17 Respiratory Rate 20 08/28/17 18:17 Blood Pressure 135/69 08/28/17 18:17 O2 Sat by Pulse Oximetry (%) 97 08/28/17 15:39 Constitutional: Yes: Anxious, Obese. No: Calm Eyes: Yes: Conjunctiva Clear, EOM Intact HENT: Yes: Atraumatic, Normocephalic Cardiovascular: Yes: Regular Rate and Rhythm, S1, S2 Respiratory: Yes: Regular, CTA Bilaterally Gastrointestinal: Yes: Soft, Abdomen, Obese Breast(s): Yes: Other (healed right mastectomy scar). No: Right Extremities: No: Cool, Cyanosis Integumentary: Yes: Incision, Other (6cm X 4cm tense area of flucturance left anterior shoulder) Neurological: Yes: Alert, Oriented ...Motor Strength: WNL Psychiatric: Yes: Alert, Oriented Labs: CBC, BMP 08/28/17 17:25 08/28/17 16:50 Problem List - Problems (1) Abscess of left shoulder Assessment/Plan: ED Bedside incision and drainage of left anterior shoulder complex loculated abscess 6X4cm Single does of IV antibiotics broad spectrum coverage in ED Oral antibiotics for 7 days Augmentin and clindamycin Oral analgesia in addition to current regimen F/u on Sunday 09/02 at the main in the diagnostic center Dressing to be changed by the daughter thursday evening and thursday Plan was elaborated to the patient and her daughter She was encourged to f/u with any concerns Code(s): L02.414 - CUTANEOUS ABSCESS OF LEFT UPPER LIMB (2) Breast cancer Code(s): C50.919 - MALIGNANT NEOPLASM OF UNSP SITE OF UNSPECIFIED FEMALE BREAST Qualifiers: Patient sex: female Laterality: right (3) COPD (chronic obstructive pulmonary disease) Code(s): J44.9 - CHRONIC OBSTRUCTIVE PULMONARY DISEASE, UNSPECIFIED Qualifiers : COPD type: unspecified COPD Qualified Code(s): J44.9 - Chronic obstructive pulmonary disease, unspecified; J44.9 - Chronic obstructive pulmonary disease, unspecified; J44.9 - Chronic obstructive pulmonary disease, unspecified; J44.9 - Chronic obstructive pulmonary disease, unspecified (4) Fluid collection at surgical site Code(s): T88.8XXA - OTH COMPLICATIONS OF SURGICAL AND MEDICAL CARE, NEC, INIT (5) Hypertension Code(s): I10 - ESSENTIAL (PRIMARY) HYPERTENSION Qualifiers: Hypertension type: essential hypertension Qualified Code(s): I10 - Essential (primary) hypertension; I10 - Essential (primary) hypertension; I10 - Essential (primary) hypertension Labs Lab Results: CBC, BMP 08/28/17 17:25 08/28/17 16:50
[2017-08-28] MEDS ORDERED: PIPERACILLIN/TAZOBACTAM 4.5 GM VIAL IVPB ONE (19:24)
[2017-08-28] MEDS ORDERED: VANCOMYCIN 1,000 MG VIAL (RESTRICTED TO ID ONLY) ONE (20:04)
[2017-08-28 20:52] VITALS: BP 112/70; PULSE 72; TEMP 99
== END 2017-08-28 21:46 | disposition home or self-care (01) ==
LOC: FER 15:38
PROC: 0H9CXZZ Drainage of Left Upper Arm Skin, External Approach (ICD-10-PCS; principal; 2017-08-28)
PROC: 3E033NZ Introduction of Analgesics, Hypnotics, Sedatives into Peripheral Vein, Percutaneous Approach (ICD-10-PCS; 2017-08-28)
PROC: 3E0337Z Introduction of Electrolytic and Water Balance Substance into Peripheral Vein, Percutaneous Approach (ICD-10-PCS; 2017-08-28)
PROC: 3E03329 Introduction of Other Anti-infective into Peripheral Vein, Percutaneous Approach (ICD-10-PCS; 2017-08-28)
DX: L02.414 Cutaneous abscess of left upper limb (principal)
CPT/HCPCS: 10060; 36415; 80053; 85025; 87040; 87070; 87205; 96361; 96374; 96375; 99283-25

== ENCOUNTER 2021-01-24 05:17 | Emergency (ER) | payer OTHER ==
[2021-01-24 06:01] VITALS: BP 128/73; PULSE 71; TEMP 98.4; BMI 39.6
[2021-01-24] MEDS ORDERED: FLUORESCEIN NA 1 EA STRIP OS ONE (07:20)
[2021-01-24] MEDS ORDERED: TETRACAINE 0.5% HCL 0.6ML DROPPER.BOTTLE OU ONE (07:20)
[2021-01-24] MEDS ORDERED: TETRACAINE 0.5% OPHTH SOLN 2 ML BOTTLE ONE (07:22)
[2021-01-24] MEDS ORDERED: FLUORESCEIN NA 1 EA STRIP ONE (07:22)
== END 2021-01-24 07:50 | disposition home or self-care (01) ==
LOC: JER 05:17
DX: H01.004 Unspecified blepharitis left upper eyelid (principal)
CPT/HCPCS: 99284-25

== ENCOUNTER 2021-02-02 21:20 | Emergency (ER) | payer OTHER ==
[2021-02-02 21:33] VITALS: BP 138/64; PULSE 81; TEMP 98; BMI 39.6
[2021-02-02 21:52] LABS: BASO % 0.8 % (0-2.0); EOS % 3.7 % (0-4.5); HEMOGLOBIN 10.7 GM/dl (10.7-15.3); LYMPH % 24.3 % (8-40); MCH 29.7 pg (25.7-33.7); MCHC 33.5 g/dl (32.0-36.0); MEAN CELL VOLUME 88.6 fl (80-96); MEAN PLT VOLUME 7.1 fl (7.5-11.1); NEUT % 64.2 % (42.8-82.8); PLATELET COUNT 183 K/MM3 (134-434); RBC 3.62 M/mm3 (3.60-5.2); RDW 13.3 % (11.6-15.6); WHITE BLOOD COUNT 5.1 K/mm3 (4.0-10.8)
[2021-02-02 22:16] LABS: ALBUMIN 3.3 g/dl (3.4-5.0); BILIRUBIN,TOTAL 0.3 mg/dl (0.2-1); CALCIUM 8.8 mg/dl (8.5-10); CREATININE 0.8 mg/dl (0.55-1.3); MAGNESIUM 1.8 mg/dL (1.8-2.4); POTASSIUM 3.5 mmol/L (3.5-5.1); TOT PROT 6.1 g/dl (6.4-8.2)
[2021-02-02 23:06] LABS: N-TERMINAL BNP 157.3 pg/ml (5-125)
== END 2021-02-03 03:21 | disposition left against medical advice (07) ==
LOC: FER 21:20
DX: U07.1 COVID-19 (principal); R60.9 Edema, unspecified
CPT/HCPCS: 36415; 71045-TC-FY; 80053; 82550; 83735; 83880; 84484; 85025; 85379; 93005; 93970-TC; 99285-25; C9803; U0003; U0005

== ENCOUNTER 2021-02-04 16:02 | Emergency (ER) | payer OTHER ==
[2021-02-04 16:53] VITALS: BP 133/56; PULSE 79; TEMP 98.4; BMI 29.9
[2021-02-04] MEDS ORDERED: CITALOPRAM HYDROBROMIDE 20 MG TABLET PO ONE (20:55)
== END 2021-02-04 23:36 | disposition home or self-care (01) ==
LOC: JER 16:02
DX: J44.9 Chronic obstructive pulmonary disease, unspecified (principal)
CPT/HCPCS: 71275-TC; 99284-25; C9803; Q9967; U0003; U0005